=== PATIENT | female | born 1995 | race Caucasian/White ===

== ENCOUNTER 2017-04-23 14:29 | Emergency (ER) | payer BC ==
[2017-04-23] MEDS ORDERED: Sodium Chloride 0.9% 10 ML Syringe FLUSH PRN (14:56)
[2017-04-23] MEDS ORDERED: Ondansetron 4 MG/2 ML SDV IVPUSH ONE (14:56)
[2017-04-23] MEDS ORDERED: Ketorolac 30 MG/ML SDV IVPUSH ONE (14:58)
[2017-04-23] MEDS ORDERED: HYDROmorphone 1 MG/ML Syringe IVPUSH ONE (14:58)
[2017-04-23] MEDS ORDERED: Sodium Chloride 0.9% 1,000 ML IV SCH (15:00)
--- NOTE | 2017-04-23 16:06 | CT ---
CT abdomen and pelvis Technique: Multiple axial sections were obtained from above the dome of the diaphragm inferiorly through the pubic symphysis. Intravenous and oral contrast not utilized. Study has been performed as a ureteral stone protocol. Findings: Right ureter is dilated. This finding is caused by an obstructing stone within the distal right ureter located slightly proximal to the UVJ measuring about 5.9 mm in size. No other abnormal calcifications are seen along the course of the ureters. No abnormal calcifications are seen within the kidneys. Visualized lung bases shows nothing acute. Noncontrast appearance of the liver appears within normal limits. Spleen appears within normal limits. Adrenal glands show no nodule. Pancreas is within normal limits. Aorta shows no aneurysmal dilatation. No retroperitoneal adenopathy or mesenteric abnormalities are seen. No pelvic mass or adenopathy is seen. No free fluid or inflammatory change is identified. Bone window settings were reviewed which appear within normal limits for the patient's age. Impression: 1. Dilated right ureter caused by a 5.9 mm distal obstructing stone located slightly proximal to the UVJ. No other abnormal calcifications are seen. 2. No additional abnormality is identified on noncontrast CT study of the abdomen and pelvis performed as a ureteral stone protocol. Diagnostic code #3
[2017-04-23] MEDS ORDERED: HYDROmorphone 0.5 MG/0.5 ML Syringe IVPUSH ONE (16:29)
--- NOTE | 2017-04-23 16:37 | EDM.PDOC ---
ED HPI GENERAL MEDICAL PROBLEM - General Chief Complaint: Flank Pain Stated Complaint: RIGHT SIDE PAIN Time Seen by Provider: 04/23/17 14:45 Source of Information: Reports: Patient History Limitations: Reports: No Limitations - History of Present Illness INITIAL COMMENTS - FREE TEXT/NARRATIVE: The patient presents with right flank pain that radiates to her right lower abdomen. She has no nausea or vomiting. She has no dysuria or hematuria. She has a history of kidney stones. She has no diarrhea. She has on fever or chills. She has no chest pain, shortness of breath or cough. Onset: Sudden Duration: Hour(s): Location: Reports: Abdomen (right lower abdomen), Back (Right flank) Quality: Reports: Sharp Severity: Severe Improves with: Reports: None Worsens with: Reports: None Associated Symptoms: Denies: Confusion, Chest Pain, Cough, Fever/Chills, Nausea/ Vomiting, Shortness of Breath Right Flank Pain Score (Numeric/FACES): 7 - Related Data Allergies Allergy/AdvReac Type Severity Reaction Status Date / Time amoxicillin Allergy Cannot Verified 04/23/17 14:45 Remember Home Meds: Home Meds Hydrocodone/Acetaminophen [Hydrocodon-Acetaminophen 5-325] 1 - 2 each PO Q6HR PRN #20 tablet 04/23/17 [Rx] Tamsulosin HCl [Flomax] 0.4 mg PO DAILY #7 cap.er.24h 04/23/17 [Rx] Past Medical History HEENT History: Reports: Other (See Below) Other HEENT History: swollen optic nerves Genitourinary History: Reports: Renal Calculus 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) Other OB/BYN History: chlamydia Dermatologic History: Reports: Other (See Below) Other Dermatologic History: ring worm previously Social & Family History - Tobacco Use Smoking Status *Q: Current Every Day Smoker Years of Tobacco use: 6 Packs/Tins Daily: 1 Used Tobacco, but Quit: No Second Hand Smoke Exposure: No - Caffeine Use Caffeine Use: Reports: Coffee, Energy Drinks, Soda - Recreational Drug Use Recreational Drug Use: No ED ROS GENERAL - Review of Systems Review Of Systems: See Below Constitutional: Reports: No Symptoms HEENT: Reports: No Symptoms Respiratory: Reports: No Symptoms Cardiovascular: Reports: No Symptoms Endocrine: Reports: No Symptoms GI/Abdominal: Reports: Abdominal Pain (right lower abdomen). Denies: Diarrhea, Nausea, Vomiting : Reports: Flank Pain (Right) Musculoskeletal: Reports: No Symptoms Skin: Reports: No Symptoms ED EXAM, RENAL/ - Physical Exam Exam: See Below Exam Limited By: No Limitations General Appearance: Alert, No Apparent Distress Ears: Normal External Exam Nose: Normal Inspection Head: Atraumatic, Normocephalic Neck: Normal Inspection Respiratory/Chest: No Respiratory Distress, Lungs Clear, Normal Breath Sounds Cardiovascular: Regular Rate, Rhythm, No Edema, No Murmur GI/Abdominal: Soft, Non-Tender, No Organomegaly, No Mass Back Exam: Normal Inspection Course - Vital Signs Last Recorded V/S: Last Vital Signs Temp 98.1 F 04/23/17 14:41 Pulse 92 04/23/17 14:41 Resp 18 04/23/17 14:41 BP 132/79 04/23/17 14:41 Pulse Ox 98 04/23/17 14:41 - Orders/Labs/Meds Orders: Active Orders 24 hr Category Date Time Status Peripheral IV Care [RC] . DIRECTED Care 04/23/17 14:57 Active Sodium Chloride 0.9% [Normal Saline] 1,000 ml Med 04/23/17 15:00 Active IV ASDIRECTED Sodium Chloride 0.9% [Saline Flush] Med 04/23/17 14:56 Active 10 ml FLUSH ASDIRECTED PRN ED Antiemetic Medication Reflex [OM.PC] Stat Oth 04/23/17 14:56 Ordered Peripheral IV Insertion Adult [OM.PC] Stat Oth 04/23/17 14:56 Ordered Medication Orders Sodium Chloride (Normal Saline) 1,000 mls @ 125 mls/hr IV ASDIRECTED JAMES Last Admin: 04/23/17 15:25 Dose: 125 mls/hr Sodium Chloride (Saline Flush) 10 ml FLUSH ASDIRECTED PRN PRN Reason: Keep Vein Open Last Admin: 04/23/17 15:25 Dose: 10 ml Labs: Laboratory Tests 04/23/17 04/23/17 04/23/17 Range/Units 14:45 15:30 15:30 WBC 9.18 (3.98-10.04) K/mm3 RBC 4.48 (3.98-5.22) M/mm3 Hgb 13.8 (11.2-15.7) gm/L Hct 40.7 (34.1-44.9) % MCV 90.8 (79.4-94.8) fl MCH 30.8 (25.6-32.2) pg MCHC 33.9 (32.2-35.5) g/dl RDW Std Deviation 42.1 (36.4-46.3) fL Plt Count 276 (182-369) K/mm3 MPV 9.2 L (9.4-12.3) fl Neut % (Auto) 63.7 (34.0-71.1) % Lymph % (Auto) 26.7 (19.3-51.7) % [place] % (Auto) 5.8 (4.7-12.5) % Eos % (Auto) 3.3 (0.7-5.8) Baso % (Auto) 0.3 (0.1-1.2) % Neut # (Auto) 5.85 (1.56-6.13) K/mm3 Lymph # (Auto) 2.45 (1.18-3.74) K/mm3 [place] # (Auto) 0.53 H (0.24-0.36) K/mm3 Eos # (Auto) 0.30 (0.04-0.36) K/mm3 Baso # (Auto) 0.03 (0.01-0.08) K/mm3 Sodium 142 (136-145) mEq/L Potassium 3.7 (3.5-5.1) mEq/L Chloride 107 (98-107) mEq/L Carbon Dioxide 26 (21-32) mEq/L Anion Gap 12.7 (5-15) BUN 12 (7-18) mg/dL Creatinine 0.8 (0.55-1.02) mg/dL Est Cr Clr Drug Dosing 100.94 mL/min Estimated GFR (MDRD) > 60 (>60) mL/min BUN/Creatinine Ratio 15.0 (14-18) Glucose 96 (74-106) mg/dL Calcium 9.2 (8.5-10.1) mg/dL Total Bilirubin 0.2 (0.2-1.0) mg/dL AST 17 (15-37) U/L ALT 26 (14-59) U/L Alkaline Phosphatase 57 (46-116) U/L Total Protein 7.5 (6.4-8.2) g/dl Albumin 3.8 (3.4-5.0) g/dl Globulin 3.7 gm/dL Albumin/Globulin Ratio 1.0 (1-2) Lipase 99 (73-393) U/L HCG, Qual (NEGATIVE) Urine Color Yellow (Yellow) Urine Appearance Clear (Clear) Urine pH 6.5 (5.0-8.0) Ur Specific [place] 1.025 (1.005-1.030) Urine Protein 1+ H (Negative) Urine Glucose (UA) Negative (Negative) Urine Ketones Negative (Negative) Urine Occult Blood 3+ H (Negative) Urine Nitrite Negative (Negative) Urine Bilirubin Negative (Negative) Urine Urobilinogen 1.0 (0.2-1.0) Ur Leukocyte Esterase Trace H (Negative) Urine RBC 40-50 H (0-5) /hpf Urine WBC 10-20 H (0-5) /hpf Ur Epithelial Cells 0-5 (0-5) /hpf Urine Bacteria Moderate H (FEW) /hpf Urine Mucus Not seen (FEW) /hpf 04/23/17 Range/Units 15:30 WBC (3.98-10.04) K/mm3 RBC (3.98-5.22) M/mm3 Hgb (11.2-15.7) gm/L Hct (34.1-44.9) % MCV (79.4-94.8) fl MCH (25.6-32.2) pg MCHC (32.2-35.5) g/dl RDW Std Deviation (36.4-46.3) fL Plt Count (182-369) K/mm3 MPV (9.4-12.3) fl Neut % (Auto) (34.0-71.1) % Lymph % (Auto) (19.3-51.7) % [place] % (Auto) (4.7-12.5) % Eos % (Auto) (0.7-5.8) Baso % (Auto) (0.1-1.2) % Neut # (Auto) (1.56-6.13) K/mm3 Lymph # (Auto) (1.18-3.74) K/mm3 [place] # (Auto) (0.24-0.36) K/mm3 Eos # (Auto) (0.04-0.36) K/mm3 Baso # (Auto) (0.01-0.08) K/mm3 Sodium (136-145) mEq/L Potassium (3.5-5.1) mEq/L Chloride (98-107) mEq/L Carbon Dioxide (21-32) mEq/L Anion Gap (5-15) BUN (7-18) mg/dL Creatinine (0.55-1.02) mg/dL Est Cr Clr Drug Dosing mL/min Estimated GFR (MDRD) (>60) mL/min BUN/Creatinine Ratio (14-18) Glucose (74-106) mg/dL Calcium (8.5-10.1) mg/dL Total Bilirubin (0.2-1.0) mg/dL AST (15-37) U/L ALT (14-59) U/L Alkaline Phosphatase (46-116) U/L Total Protein (6.4-8.2) g/dl Albumin (3.4-5.0) g/dl Globulin gm/dL Albumin/Globulin Ratio (1-2) Lipase (73-393) U/L HCG, Qual Negative (NEGATIVE) Urine Color (Yellow) Urine Appearance (Clear) Urine pH (5.0-8.0) Ur Specific [place] (1.005-1.030) Urine Protein (Negative) Urine Glucose (UA) (Negative) Urine Ketones (Negative) Urine Occult Blood (Negative) Urine Nitrite (Negative) Urine Bilirubin (Negative) Urine Urobilinogen (0.2-1.0) Ur Leukocyte Esterase (Negative) Urine RBC (0-5) /hpf Urine WBC (0-5) /hpf Ur Epithelial Cells (0-5) /hpf Urine Bacteria (FEW) /hpf Urine Mucus (FEW) /hpf Meds: Medications Generic Name Dose Route Start Last Admin Trade Name Freq PRN Reason Stop Dose Admin Sodium Chloride 1,000 mls @ 125 mls/hr 04/23/17 15:00 04/23/17 15:25 Normal Saline IV 125 mls/hr ASDIRECTED JAMES Administration Sodium Chloride 10 ml 04/23/17 14:56 04/23/17 15:25 Saline Flush FLUSH 10 ml ASDIRECTED PRN Administration Keep Vein Open Discontinued Medications Generic Name Dose Route Start Last Admin Trade Name Freq PRN Reason Stop Dose Admin Hydromorphone HCl 1 mg 04/23/17 14:58 04/23/17 15:31 Dilaudid IVPUSH 04/23/17 14:59 1 mg ONETIME ONE Administration Hydromorphone HCl 0.5 mg 04/23/17 16:29 Dilaudid IVPUSH 04/23/17 16:30 ONETIME ONE Ketorolac Tromethamine 30 mg 04/23/17 14:58 04/23/17 15:29 Toradol IVPUSH 04/23/17 14:59 30 mg ONETIME ONE Administration Ondansetron HCl 4 mg 04/23/17 14:56 04/23/17 15:26 Zofran IVPUSH 04/23/17 14:57 4 mg ONETIME ONE Administration - Re-Assessments/Exams Free Text/Narrative Re-Assessment/Exam: 04/23/17 16:35 I ordered an IV NS at 125mL/hr, zofran 4mg IV, toradol 30mg IV, dilaudid 1mg IV , labs, UA and a CT of her abdomen and pelvis. Her CBC and CMP look good. Her HCG is negative. Her UA shows blood. Her CT shows dilated right ureter caused by a 5.9mm distal obstructing stone located slightly proximal to the UVJ. No other abnormal calcifications are seen. No additional abnormality is identified on noncontrast CT study of the abdomen and pelvis. She is having a little bit of pain come back. I ordered dilaudid 0.5mg IV. I will discharge her with some hydrocodone and flomax. Departure - Departure Time of Disposition: 16:40 Disposition: Home, Self-Care 01 Condition: Good Clinical Impression: Ureteric colic, Kidney stone - Discharge Information Prescriptions: Hydrocodone/Acetaminophen [Hydrocodon-Acetaminophen 5-325] 1 - 2 each PO Q6HR PRN #20 tablet PRN Reason: Pain Tamsulosin HCl [Flomax] 0.4 mg PO DAILY #7 cap.er.24h Referrals: PCP,None [Primary Care Provider] - Danny Narayan MD [Ordering Only Provider] - 1 Week Additional Instructions: Take flomax daily. Take hydrocodone as needed for pain. Please return if you are worse. Follow up with the urologist. - My Orders Last 24 Hours: My Active Orders 04/23/17 14:56 Sodium Chloride 0.9% [Saline Flush] 10 ml FLUSH ASDIRECTED PRN ED Antiemetic Medication Reflex [OM.PC] Stat Peripheral IV Insertion Adult [OM.PC] Stat 04/23/17 14:57 Peripheral IV Care [RC] . DIRECTED 04/23/17 15:00 Sodium Chloride 0.9% [Normal Saline] 1,000 ml IV ASDIRECTED - Assessment/Plan Last 24 Hours: My Active Orders 04/23/17 14:56 Sodium Chloride 0.9% [Saline Flush] 10 ml FLUSH ASDIRECTED PRN ED Antiemetic Medication Reflex [OM.PC] Stat Peripheral IV Insertion Adult [OM.PC] Stat 04/23/17 14:57 Peripheral IV Care [RC] . DIRECTED 04/23/17 15:00 Sodium Chloride 0.9% [Normal Saline] 1,000 ml IV ASDIRECTED
== END 2017-04-23 16:50 | disposition home or self-care (01) ==
LOC: JD.ED 14:29
DX: N20.2 Calculus of kidney with calculus of ureter (principal); F17.210 Nicotine dependence, cigarettes, uncomplicated; Z88.1 Allergy status to other antibiotic agents; Z79.899 Other long term (current) drug therapy
CPT/HCPCS: 36415; 74176; 80053; 81001; 83690; 84703; 85025; 96361; 96374; 96375; 96376; 99284; J1170; J1885; J2405; J7040; J7050

== ENCOUNTER 2017-04-24 19:10 | Emergency (ER) | payer BC ==
[2017-04-24] MEDS ORDERED: Sodium Chloride 0.9% 10 ML Syringe FLUSH PRN (20:04)
[2017-04-24] MEDS ORDERED: Ketorolac 30 MG/ML SDV IVPUSH ONE (20:04)
[2017-04-24] MEDS ORDERED: Sodium Chloride 0.9% 1,000 ML IV ONE (20:04)
[2017-04-24] MEDS ORDERED: HYDROmorphone 1 MG/ML Syringe IVPUSH ONE (20:04)
--- NOTE | 2017-04-24 20:17 | EDM.PDOC ---
ED HPI GENERAL MEDICAL PROBLEM - General Chief Complaint: Genitourinary Problem Stated Complaint: KIDNEY STONES Time Seen by Provider: 04/24/17 19:55 Source of Information: Reports: Patient, Old Records (ER visit 04-23-17) History Limitations: Reports: No Limitations - History of Present Illness INITIAL COMMENTS - FREE TEXT/NARRATIVE: 22-year-old female presents for evaluation treatment of kidney stones. Patient was seen in the ER yesterday. She was diagnosed with a 5.8 mm kidney stone. Patient was given hydrocodone. She reports that she is not having good pain relief. Reports that symptoms started yesterday morning. By the afternoon they're much worse and she presented to the ER. She was given Toradol IV and Dilaudid IV. States by the time she left the ER she was pain-free. She denies any current fevers, chills, nausea, vomiting or any dysuria. She is reporting some low back pain on the right side with radiation to the right groin. Patient was prescribed norco 5-325 for home. He states that she took 1 tablet 8: 30, one at 1600, and 1 at 1800. She states that the medication is barely taking the edge off and she continues to have significant discomfort. She was instructed to follow-up with urology and has not yet made an appointment to see them. Patient reports that she's had several kidney stones in the past. This is her fifth stone that she's had. She has never strained her urine nor had her stones analyzed. Has never seen urology. 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 Denies: Dysuria Musculoskeletal: Reports: Back Pain (right low back) ED EXAM, RENAL/ - Physical Exam Exam: See Below Exam Limited By: No Limitations General Appearance: Alert, WD/WN, No Apparent Distress Respiratory/Chest: No Respiratory Distress, Lungs Clear, Normal Breath Sounds Cardiovascular: Normal Peripheral Pulses, Regular Rate, Rhythm, No Murmur Back Exam: Paraspinal Tenderness (right lower back around L4/L5). No: CVA Tenderness (L), CVA Tenderness (R) Neurological: Alert, Oriented, Normal Cognition Psychiatric: Normal Affect, Normal Mood Skin Exam: Warm, Dry, Normal Color Course - Vital Signs Last Recorded V/S: Last Vital Signs Temp 36.7 C 04/24/17 19:20 Pulse 85 04/24/17 19:20 Resp 17 04/24/17 19:20 BP 125/90 04/24/17 19:20 Pulse Ox 98 04/24/17 19:20 - Orders/Labs/Meds Orders: Active Orders 24 hr Category Date Time Status Peripheral IV Care [RC] . DIRECTED Care 04/24/17 20:04 Active CULTURE URINE [RM] Stat Lab 04/24/17 20:50 Ordered Peripheral IV Insertion Adult [OM.PC] Routine Oth 04/24/17 20:04 Ordered Labs: Laboratory Tests 04/24/17 04/24/17 04/24/17 Range/Units 20:10 20:34 20:34 WBC 7.76 (3.98-10.04) K/mm3 RBC 3.96 L (3.98-5.22) M/mm3 Hgb 12.3 (11.2-15.7) gm/L Hct 36.1 (34.1-44.9) % MCV 91.2 (79.4-94.8) fl MCH 31.1 (25.6-32.2) pg MCHC 34.1 (32.2-35.5) g/dl RDW Std Deviation 41.6 (36.4-46.3) fL Plt Count 266 (182-369) K/mm3 MPV 8.8 L (9.4-12.3) fl Neut % (Auto) 49.1 (34.0-71.1) % Lymph % (Auto) 41.5 (19.3-51.7) % [place] % (Auto) 5.8 (4.7-12.5) % Eos % (Auto) 3.4 (0.7-5.8) Baso % (Auto) 0.1 (0.1-1.2) % Neut # (Auto) 3.81 (1.56-6.13) K/mm3 Lymph # (Auto) 3.22 (1.18-3.74) K/mm3 [place] # (Auto) 0.45 H (0.24-0.36) K/mm3 Eos # (Auto) 0.26 (0.04-0.36) K/mm3 Baso # (Auto) 0.01 (0.01-0.08) K/mm3 Sodium 140 (136-145) mEq/L Potassium 4.1 (3.5-5.1) mEq/L Chloride 105 (98-107) mEq/L Carbon Dioxide 27 (21-32) mEq/L Anion Gap 12.1 (5-15) BUN 12 (7-18) mg/dL Creatinine 0.8 (0.55-1.02) mg/dL Est Cr Clr Drug Dosing 100.94 mL/min Estimated GFR (MDRD) > 60 (>60) mL/min BUN/Creatinine Ratio 15.0 (14-18) Glucose 96 (74-106) mg/dL Calcium 8.9 (8.5-10.1) mg/dL Total Bilirubin 0.2 (0.2-1.0) mg/dL AST 24 (15-37) U/L ALT 24 (14-59) U/L Alkaline Phosphatase 50 (46-116) U/L Total Protein 6.7 (6.4-8.2) g/dl Albumin 3.5 (3.4-5.0) g/dl Globulin 3.2 gm/dL Albumin/Globulin Ratio 1.1 (1-2) Urine Color Yellow (Yellow) Urine Appearance Clear (Clear) Urine pH 6.5 (5.0-8.0) Ur Specific [place] > or = 1.030 (1.005-1.030) Urine Protein 1+ H (Negative) Urine Glucose (UA) Negative (Negative) Urine Ketones Negative (Negative) Urine Occult Blood 3+ H (Negative) Urine Nitrite Negative (Negative) Urine Bilirubin Negative (Negative) Urine Urobilinogen 1.0 (0.2-1.0) Ur Leukocyte Esterase 1+ H (Negative) Urine RBC 40-50 H (0-5) /hpf Urine WBC 10-20 H (0-5) /hpf Ur Epithelial Cells 5-10 H (0-5) /hpf Urine Bacteria Moderate H (FEW) /hpf Urine Mucus Moderate H (FEW) /hpf Urine Trichomonas Few Meds: Medications Discontinued Medications Generic Name Dose Route Start Last Admin Trade Name Freq PRN Reason Stop Dose Admin Hydromorphone HCl 1 mg 04/24/17 20:04 04/24/17 20:13 Dilaudid IVPUSH 04/24/17 20:05 1 mg ONETIME ONE Administration Sodium Chloride 1,000 mls @ 999 mls/hr 04/24/17 20:04 04/24/17 20:13 Normal Saline IV 04/24/17 21:04 999 mls/hr ONETIME ONE Administration Ketorolac Tromethamine 30 mg 04/24/17 20:04 04/24/17 20:13 Toradol IVPUSH 04/24/17 20:05 30 mg ONETIME ONE Administration Sodium Chloride 10 ml 04/24/17 20:04 04/24/17 20:13 Saline Flush FLUSH 10 ml ASDIRECTED PRN Administration Keep Vein Open - Re-Assessments/Exams Free Text/Narrative Re-Assessment/Exam: 04/24/17 21:19 Patient is currently resting comfortable. Reports good pain control to oral and Dilaudid. Her mother is comingto get her from the ER [facility]. Will add in oral Toradol and recommend that she take 2 tabs of the norco every 4 -6 hours. She should follow up with urology. I will give her a strainer to strain her urine. Will treat for Trichomonas that was seen on UA. Urine was sent for culture. Recommended a complete STD screen. Encourage her to go to [facility] where this option is much more affordable. I did offer her the screening here in the ER [place] but she agrees to go to [facility]. Discharge instructions as documented. Departure - Departure Time of Disposition: 21:21 Disposition: Home, Self-Care 01 Condition: Fair Clinical Impression: Kidney stone, Ureteric colic, Trichomonal infection - Discharge Information Prescriptions: metroNIDAZOLE [Flagyl] 500 mg PO Q12H #14 tab Instructions: Kidney Stones, Trichomoniasis Referrals: PCP,None [Primary Care Provider] - Forms: ED Department Discharge, ED Return to Work/School Form Additional Instructions: Take the Flagyl twice a day for 7 days. No intercourse for 7 days. Do not take any alcohol with the Flagyl as this will make you very sick. Recommend follow-up with [facility] for complete STD testing. Recommend [facility] call [phone]. They are located at [address] [place] [address]. Prescription for Toradol 10 mg tabs 1 tab every 6 hours as needed for pain #15. Do not take more than 40 mg 4 tabs Toradol in 1 day. Continue on your hydrocodone 1 or 2 tabs every 4-6 hours as needed for pain. Do not drive or operate machinery within 12 hours of taking the hydrocodone. Hydrocodone can be habit-forming, I recommend you take as few of these as needed to control your pain. Strain urine. If you catch a stone recommend bringing this to urology clinic. Follow-up with Dr. Narayan. Call his office to schedule appointment with him tomorrow. call [phone] to schedule with him. Make sure you are drinking plenty of fluids. You were given medication in the ER that can affect your ability to drive and operate machinery. Do not drive or operate machinery within 12 hours of taking prescription narcotic pain medication. Please return to ER if your symptoms change or worsen. note for work given . - My Orders Last 24 Hours: My Active Orders 04/24/17 20:04 Peripheral IV Care [RC] . DIRECTED Peripheral IV Insertion Adult [OM.PC] Routine 04/24/17 20:50 CULTURE URINE [RM] Stat - Assessment/Plan Last 24 Hours: My Active Orders 04/24/17 20:04 Peripheral IV Care [RC] . DIRECTED Peripheral IV Insertion Adult [OM.PC] Routine 04/24/17 20:50 CULTURE URINE [RM] Stat
== END 2017-04-24 21:50 | disposition home or self-care (01) ==
LOC: JD.ED 19:10
DX: N20.2 Calculus of kidney with calculus of ureter (principal); A59.9 Trichomoniasis, unspecified; F17.210 Nicotine dependence, cigarettes, uncomplicated; Z79.899 Other long term (current) drug therapy; Z88.1 Allergy status to other antibiotic agents
CPT/HCPCS: 36415; 80053; 81001; 85025; 87086; 96361; 96374; 96375; 99284; J1170; J1885; J7040; J7050; 87088

== ENCOUNTER 2017-04-25 02:39 | Emergency (ER) | payer BC ==
[2017-04-25] MEDS ORDERED: HYDROmorphone 1 MG/ML Syringe IVPUSH ONE (03:00)
[2017-04-25] MEDS ORDERED: Ondansetron 4 MG/2 ML SDV IVPUSH ONE (03:00)
[2017-04-25] MEDS ORDERED: Sodium Chloride 0.9% 10 ML Syringe FLUSH PRN (03:01)
[2017-04-25] MEDS ORDERED: cefTRIAXone 1 GM in Sodium Chloride 0.9% 100 ML IV ONE (03:03)
--- NOTE | 2017-04-25 03:32 | EDM.PDOC ---
ED HPI GENERAL MEDICAL PROBLEM - General Chief Complaint: Flank Pain Stated Complaint: KIDNEY STONE PAIN Time Seen by Provider: 04/25/17 02:48 Source of Information: Reports: Patient, RN Notes Reviewed - History of Present Illness INITIAL COMMENTS - FREE TEXT/NARRATIVE: 22-year-old female returns was quite severe right back and flank discomfort, nausea and vomiting. She had onset of pain about 2 days ago was seen here in the ED and diagnosed with a 5.8 mm right-sided kidney stone already approaching the bladder with hydronephrosis. She did return around 8:00 this last evening about 7 hours ago with worsening right back and flank discomfort. The hydrocodone previously prescribed was not giving her much pain relief. She was treated with IV Dilaudid and IV Toradol and did get good pain relief. See those records for more details of those visits. However about an hour or 2 ago the pain did start coming back and once again is getting quite severe. He also has had nausea vomiting and continues to feel very nauseated at this time. Of note urinalysis obtained last evening did show a few trichomonas in the urine so she was prescribed Flagyl. The UA also did show moderate bacteria and 10-20 WBCs. Urine culture was ordered. Right Flank Pain Score (Numeric/FACES): 8 - Related Data Allergies Allergy/AdvReac Type Severity Reaction Status Date / Time amoxicillin Allergy Cannot Verified 04/25/17 02:44 Remember Home Meds: Home Meds Hydrocodone/Acetaminophen [Hydrocodon-Acetaminophen 5-325] 1 - 2 each PO Q6HR PRN #20 tablet 04/23/17 [Rx] Tamsulosin HCl [Flomax] 0.4 mg PO DAILY #7 cap.er.24h 04/23/17 [Rx] metroNIDAZOLE [Flagyl] 500 mg PO Q12H #14 tab 04/24/17 [Rx] Ondansetron [Zofran ODT] 4 mg PO Q6H PRN #10 tab.dis 04/25/17 [Rx] Past Medical History HEENT History: Reports: Other (See Below) Other HEENT History: swollen optic nerves Genitourinary History: Reports: Renal Calculus 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 CHEF History: Reports: Other (See Below) Other OB/BYN History: chlamydia Dermatologic History: Reports: Other (See Below) Other Dermatologic History: ring worm previously Social & Family History - Tobacco Use Smoking Status *Q: Current Every Day Smoker Years of Tobacco use: 3 Packs/Tins Daily: 1 Used Tobacco, but Quit: No Second Hand Smoke Exposure: No - Caffeine Use Caffeine Use: Reports: Coffee, Energy Drinks, Soda - Recreational Drug Use Recreational Drug Use: No ED ROS GENERAL - Review of Systems Review Of Systems: See Below Constitutional: Denies: Fever, Chills HEENT: Denies: Throat Pain Respiratory: Denies: Shortness of Breath Cardiovascular: Denies: Chest Pain GI/Abdominal: Reports: Abdominal Pain, Nausea (Primarily right flank radiating to right back), Vomiting : Denies: Dysuria, Frequency Musculoskeletal: Reports: Back Pain (Severe right back and flank discomfort) Skin: Reports: No Symptoms Neurological: Reports: No Symptoms ED EXAM, RENAL/ - Physical Exam Exam: See Below General Appearance: Alert, Moderate Distress Throat/Mouth: Normal Inspection, Normal Oropharynx Head: No: Facial Swelling Neck: Supple, Full Range of Motion Respiratory/Chest: No Respiratory Distress, Lungs Clear, Normal Breath Sounds Cardiovascular: Tachycardia GI/Abdominal: Tender (Right flank right lower abdomen). No: Guarding Back Exam: CVA Tenderness (R), Other Extremities: Normal Inspection, Normal Range of Motion Neurological: Alert, Oriented, No Motor/Sensory Deficits Skin Exam: Warm, Dry, Normal Color Course - Vital Signs Last Recorded V/S: Last Vital Signs Temp 97.7 F 04/25/17 02:44 Pulse 105 H 04/25/17 02:44 Resp 20 04/25/17 02:44 BP 153/92 H 04/25/17 02:44 Pulse Ox 98 04/25/17 02:44 - Orders/Labs/Meds Orders: Active Orders 24 hr Category Date Time Status Peripheral IV Care [RC] . DIRECTED Care 04/25/17 03:02 Active Peripheral IV Insertion Adult [OM.PC] Stat Oth 04/25/17 03:00 Ordered Meds: Medications Discontinued Medications Generic Name Dose Route Start Last Admin Trade Name Freq PRN Reason Stop Dose Admin Hydromorphone HCl 1 mg 04/25/17 03:00 04/25/17 03:12 Dilaudid IVPUSH 04/25/17 03:01 1 mg ONETIME ONE Administration Hydromorphone HCl 0.5 mg 04/25/17 03:44 04/25/17 03:50 Dilaudid IVPUSH 04/25/17 03:45 0.5 mg ONETIME ONE Administration Ceftriaxone Sodium 1 gm/ 100 mls @ 200 mls/hr 04/25/17 03:03 04/25/17 03:12 Sodium Chloride IV 04/25/17 03:32 200 mls/hr ONETIME ONE Administration Sodium Chloride 500 mls @ 999 mls/hr 04/25/17 03:44 04/25/17 03:48 Normal Saline IV 04/25/17 04:14 999 mls/hr .BOLUS ONE Administration Metoclopramide HCl 5 mg 04/25/17 04:24 04/25/17 04:31 Reglan IVPUSH 04/25/17 04:25 5 mg ONETIME ONE Administration Ondansetron HCl 4 mg 04/25/17 03:00 04/25/17 03:12 Zofran IVPUSH 04/25/17 03:01 4 mg ONETIME ONE Administration Sodium Chloride 10 ml 04/25/17 03:01 04/25/17 03:15 Saline Flush FLUSH 10 ml ASDIRECTED PRN Administration Keep Vein Open Departure - Departure Time of Disposition: 16:10 Disposition: Home, Self-Care 01 Condition: Fair Clinical Impression: Kidney stone, Ureteric colic - Discharge Information Prescriptions: Ondansetron [Zofran ODT] 4 mg PO Q6H PRN #10 tab.dis PRN Reason: Nausea/Vomiting Instructions: Renal Colic, [id number], Kidney Stones, [id number] Referrals: PCP,None [Primary Care Provider] - Forms: ED Department Discharge Additional Instructions: Clear liquids and very bland diet as tolerated, Zofran every 6-8 hours if needed for any further nausea or vomiting, pain medication as previously prescribed as needed. Try take those meds with food so as to not further upset her stomach. Call Dr. Narayan's office this morning after 7 AM our time for emergency appt regarding your 5.8 mm stone R distal ureter with consideration of the ongoing difficulty you are having with recurrent pain, nausea and vomiting. Continue to strain urine to watch for stone. If unable to See Urologist today or tomorrow see your regular provider tomorrow for recheck to see how you are doing and also to follow up on urine culture ordered last evening. Return to ED as needed. - My Orders Last 24 Hours: My Active Orders 04/25/17 03:00 Peripheral IV Insertion Adult [OM.PC] Stat 04/25/17 03:02 Peripheral IV Care [RC] . DIRECTED - Assessment/Plan Last 24 Hours: My Active Orders 04/25/17 03:00 Peripheral IV Insertion Adult [OM.PC] Stat 04/25/17 03:02 Peripheral IV Care [RC] . DIRECTED
[2017-04-25] MEDS ORDERED: Sodium Chloride 0.9% 500 ML IV ONE (03:44)
[2017-04-25] MEDS ORDERED: HYDROmorphone 0.5 MG/0.5 ML Syringe IVPUSH ONE (03:44)
[2017-04-25] MEDS ORDERED: Metoclopramide 10 MG/2 ML SDV IVPUSH ONE (04:24)
== END 2017-04-25 05:10 | disposition home or self-care (01) ==
LOC: JD.ED 02:39
DX: N13.2 Hydronephrosis with renal and ureteral calculous obstruction (principal); Z88.1 Allergy status to other antibiotic agents; F17.210 Nicotine dependence, cigarettes, uncomplicated
CPT/HCPCS: 96361; 96365; 96375; 96376; 99284; J0696; J1170; J2405; J2765; J7030; J7040; J7050

== ENCOUNTER 2017-09-06 00:46 | Emergency (ER) | payer BC ==
[2017-09-06] MEDS ORDERED: Ondansetron 4 MG/2 ML SDV IVPUSH ONE ×2 (01:55→04:42)
[2017-09-06] MEDS ORDERED: HYDROmorphone 0.5 MG/0.5 ML SYRINGE IVPUSH STA (02:15)
--- NOTE | 2017-09-06 02:20 | EDM.PDOC ---
ED HPI GENERAL MEDICAL PROBLEM - General Chief Complaint: Genitourinary Problem Stated Complaint: POSSIBLE KIDNEY STONE Time Seen by Provider: 09/06/17 01:52 Source of Information: Reports: Patient History Limitations: Reports: No Limitations - History of Present Illness INITIAL COMMENTS - FREE TEXT/NARRATIVE: The patient states that she developed sudden-onset right flank pain this past 09/04/2017. It is sharp and achy in character. It is made worse with quick movements or inspiration. Is made better if she remains still. She had nausea and emesis in our ER, but none previously. No recent fever. No recent urinary symptoms. The patient states that she has had similar pain on several prior occasions, always associated with a ureterolith. The patient states that she started her menstrual period this past Sunday, 09/01. It is an otherwise normal period. The patient does not have a PCP. Right Flank Pain Score (Numeric/FACES): 8 - Related Data Allergies Allergy/AdvReac Type Severity Reaction Status Date / Time amoxicillin Allergy Cannot Verified 09/06/17 01:04 Remember Home Meds: Home Meds Tamsulosin HCl [Flomax] 0.4 mg PO DAILY #7 cap.er.24h 04/23/17 [Rx] Ondansetron [Zofran ODT] 4 mg PO Q6H PRN #10 tab.dis 04/25/17 [Rx] Acetaminophen/HYDROcodone [Wasco 325-5 MG] 1 - 2 tab PO Q6H PRN #20 tablet 09/06 [Rx] Ondansetron [Zofran ODT] 1 tab PO Q8H PRN #10 tab.dis 09/06/17 [Rx] Tamsulosin HCl [Flomax] 1 cap PO QAM PRN #5 cap.er.24h 09/06/17 [Rx] Past Medical History HEENT History: Reports: Other (See Below) Other HEENT History: swollen optic nerves Genitourinary History: Reports: Renal Calculus - Infectious Disease History Infectious Disease History: Reports: Other (See Below) (Chlamydia) - Past Surgical History Female Surgical History: Reports: Ureteral Stent (right) Social & Family History - Family History Family Medical History: Noncontributory - Tobacco Use Smoking Status *Q: Current Every Day Smoker Years of Tobacco use: 7 Packs/Tins Daily: 1 - Caffeine Use Caffeine Use: Reports: Coffee, Energy Drinks, Soda - Alcohol Use Alcohol Use History: Yes Alcohol Use Frequency: Rarely - Recreational Drug Use Recreational Drug Use: No - Living Situation & Occupation Living situation: Reports: Single, with Significant Other (Boyfriend) Occupation: Employed ([employer]) ED ROS GENERAL - Review of Systems Review Of Systems: ROS reveals no pertinent complaints other than HPI. ED EXAM, GENERAL - Physical Exam Exam: See Below Exam Limited By: No Limitations General Appearance: Alert, WD/WN, Mild Distress Eye Exam: Bilateral Eye: Normal Inspection Ears: Normal External Exam, Hearing Grossly Normal Nose: Normal Inspection, No Blood Throat/Mouth: Normal Inspection, Normal Lips, Normal Voice, No Airway Compromise Head: Atraumatic, Normocephalic Neck: Normal Inspection, Full Range of Motion Respiratory/Chest: No Respiratory Distress, Lungs Clear, Normal Breath Sounds, No Accessory Muscle Use Cardiovascular: Normal Peripheral Pulses, Regular Rate, Rhythm, No Edema, No Gallop, No JVD, No Murmur, No Rub Peripheral Pulses: 4+: Radial (L), Radial (R) GI/Abdominal: Normal Bowel Sounds, Soft, Non-Tender, No Organomegaly, No Distention, No Abnormal Bruit, No Mass (Female) Exam: Deferred Rectal (Female) Exam: Deferred Back Exam: Normal Inspection, Full Range of Motion, CVA Tenderness (L), CVA Tenderness (R) Extremities: Normal Inspection, Normal Range of Motion, No Pedal Edema, Normal Capillary Refill Neurological: Alert, Oriented, Normal Cognition, No Motor/Sensory Deficits Psychiatric: Normal Affect Skin Exam: Warm, Dry, Intact, Normal Color, No Rash Course - Vital Signs Last Recorded V/S: Last Vital Signs Temp 36.8 C 09/06/17 01:00 Pulse 88 09/06/17 01:00 Resp 18 09/06/17 01:00 BP 142/99 H 09/06/17 01:00 Pulse Ox 100 09/06/17 01:00 - Orders/Labs/Meds Orders: Active Orders 24 hr Category Date Time Status Abdomen Pelvis wo Cont [CT] Stat Exams 09/06/17 05:23 Taken Kidney Ultrasound [Retroperitoneal Comp] [US] Stat Exams 09/06/17 02:14 Taken HCG QUALITATIVE,URINE [URCHEM] Stat Lab 09/06/17 01:10 Ordered UA W/MICROSCOPIC [URIN] Stat Lab 09/06/17 00:59 Ordered Labs: Laboratory Tests 09/06/17 09/06/17 Range/Units 00:59 01:10 Urine Color Light yellow (Yellow) Urine Appearance Cloudy H (Clear) Urine pH 7.5 (5.0-8.0) Ur Specific Mobile 1.020 (1.005-1.030) Urine Protein Trace H (Negative) Urine Glucose (UA) Negative (Negative) Urine Ketones Negative (Negative) Urine Occult Blood 1+ H (Negative) Urine Nitrite Negative (Negative) Urine Bilirubin Negative (Negative) Urine Urobilinogen 0.2 (0.2-1.0) Ur Leukocyte Esterase Trace H (Negative) Urine RBC 0-5 (0-5) /hpf Urine WBC 0-5 (0-5) /hpf Ur Epithelial Cells 0-5 (0-5) /hpf Amorphous Sediment Many H (NOT SEEN) /hpf Urine Bacteria Not seen (FEW) /hpf Urine Mucus Not seen (FEW) /hpf Urine HCG, Qual Negative (NEGATIVE) Meds: Medications Discontinued Medications Generic Name Dose Route Start Last Admin Trade Name Freq PRN Reason Stop Dose Admin Hydromorphone HCl 1 mg 09/06/17 02:15 09/06/17 02:26 Dilaudid IVPUSH 09/06/17 02:16 1 mg ONETIME STA Administration Hydromorphone HCl 0.5 mg 09/06/17 04:34 09/06/17 04:47 Dilaudid IVPUSH 09/06/17 04:35 0.5 mg ONETIME ONE Administration Ketorolac Tromethamine 30 mg 09/06/17 05:33 09/06/17 05:57 Toradol IVPUSH 09/06/17 05:34 30 mg ONETIME STA Administration Ondansetron HCl 4 mg 09/06/17 01:55 09/06/17 02:01 Zofran IVPUSH 09/06/17 01:56 4 mg ONETIME ONE Administration Ondansetron HCl 4 mg 09/06/17 04:42 09/06/17 04:47 Zofran IVPUSH 09/06/17 04:43 4 mg ONETIME ONE Administration Tamsulosin HCl 0.4 mg 09/06/17 05:33 09/06/17 05:57 Flomax PO 09/06/17 05:34 0.4 mg ONETIME ONE Administration - Re-Assessments/Exams Free Text/Narrative Re-Assessment/Exam: 09/06/17 02:16 The patient is complaining of severe right flank pain, just like prior kidney stones, however, the patient's urinalysis is negative for microscopic blood, this, despite the fact that the urinalysis was collected by clean catch, and the patient is on her menstrual period. Review of prior medical records finds that the patient had 40-50 RBCs on prior urinalyses when she was found to have a ureterolith. Additionally, she states that her pain is worse with certain movements, better if she remains still, which is not consistent with a ureterolith, and on physical examination, she has severe tenderness to palpation across her entire back, left and right, upper and lower. I recommended that, in order to avoid unnecessary radiation from a CT scan, we obtain a renal ultrasound. If there is no hydroureter or hydronephrosis, then the likelihood of a ureterolith is nearly zero, and I would recommend treatment for muscle spasm. If, on the other hand, hydroureter and hydronephrosis is found , then we can proceed with a CT scan to evaluate for a stone. The patient then asked if we can just skip directly to the CT scan. I had to reiterate that the goal here is to reduce unnecessary radiation. In the meantime , I have ordered IV Dilaudid. 09/06/17 05:19 Renal ultrasound is read by [facility] as "Right hydronephrosis." I have ordered a CT of the abdomen and pelvis without contrast to evaluate for a ureterolith. 09/06/17 06:15 CT of the abdomen and pelvis without contrast is read by [facility] as "Right UVJ calculus with moderate hydronephrosis and hydroureter." The body of the report indicates that the stone is 4 x 9 mm. 09/06/17 06:23 Test results discussed with the patient. With the stone measuring 4 x 9 mm at the UV junction, it will likely pass on its own, but in case it doesn't, I would like the patient to follow-up with her Urologist. She states that she has a Urologist in [place], but does not recall their name. She states that she can find who it is, if needed. I will discharge her home with a urine strainer and prescriptions for Wasco, Zofran, and Flomax. Departure - Departure Time of Disposition: 06:24 Disposition: Home, Self-Care 01 Condition: Fair Clinical Impression: Ureterolithiasis - Discharge Information Prescriptions: Acetaminophen/HYDROcodone [Wasco 325-5 MG] 1 - 2 tab PO Q6H PRN #20 tablet PRN Reason: Pain (Severe 7-10) Ondansetron [Zofran ODT] 1 tab PO Q8H PRN #10 tab.dis PRN Reason: Nausea/Vomiting Tamsulosin HCl [Flomax] 1 cap PO QAM PRN #5 cap.er.24h PRN Reason: Pain Referrals: PCP,None [Primary Care Provider] - Forms: ED Department Discharge, ED Return to Work/School Form Additional Instructions: You were seen in the emergency room for right flank pain. Workup in the ER included a urinalysis, a urine test, a renal ultrasound, and a CT scan of your abdomen and pelvis. While there was no blood in your urine to suggest a kidney stone, the renal ultrasound indicated edema of your right kidney, and a CT scan confirmed a 4 x 9 mm stone at the very end of your right ureter, right next your bladder. Given the size and location of the stone, you will most likely pass the stone on your own, however, if you continue to have pain by 09/10/2017, please follow-up with your Urologist. Stay adequately hydrated. Strain all of your urine. If you capture the stone, take it to your doctor for analysis. Take [id number] ibuprofen, 2-3 tablets (400-600 mg) every 8 hours, with food, as needed for pain. Take 1 to 2 tablets of the narcotic pain reliever Wasco up to every 6 hours, as needed for pain not relieved by ibuprofen. If you take Wasco, do not drive or operate heavy equipment for 10 hours afterwards. Wasco will likely cause constipation, so consider taking a stool softener. Dissolve one tablet of the anti-nausea medicine Zofran on your tongue up to every 8 hours, as needed for nausea/vomiting. Take one tablet of the anti-spasm medicine Flomax every morning, starting tomorrow morning, 09/07/2017, as needed for pain. A note for work, excusing you through 09/10/2017, has been provided. If any other problems, please do not hesitate to return to the ER. - My Orders Last 24 Hours: My Active Orders 09/06/17 00:59 UA W/MICROSCOPIC [URIN] Stat 09/06/17 01:10 HCG QUALITATIVE,URINE [URCHEM] Stat 09/06/17 02:14 Kidney Ultrasound [Retroperitoneal Comp] [US] Stat 09/06/17 05:23 Abdomen Pelvis wo Cont [CT] Stat - Assessment/Plan Last 24 Hours: My Active Orders 09/06/17 00:59 UA W/MICROSCOPIC [URIN] Stat 09/06/17 01:10 HCG QUALITATIVE,URINE [URCHEM] Stat 09/06/17 02:14 Kidney Ultrasound [Retroperitoneal Comp] [US] Stat 09/06/17 05:23 Abdomen Pelvis wo Cont [CT] Stat
[2017-09-06] MEDS ORDERED: HYDROmorphone 0.5 MG/0.5 ML SYRINGE IVPUSH ONE (04:34)
[2017-09-06] MEDS ORDERED: Ketorolac 30 MG/ML SDV IVPUSH STA (05:33)
[2017-09-06] MEDS ORDERED: Tamsulosin 0.4 MG Cap.ER PO ONE (05:33)
--- NOTE | 2017-09-06 07:42 | CT ---
CT abdomen and pelvis Technique: Multiple axial sections were obtained from above the dome of the diaphragm inferiorly through the pubic symphysis. Intravenous and oral contrast not utilized. Study has been performed as a ureteral stone protocol. Right-sided hydroureter and hydronephrosis is seen which is due to an obstructing distal right ureteral stone measuring about 7.8 mm in size. This is located at the UVJ. No other abnormal calcifications are seen along the course of the ureters. Minimal nonobstructing stone is noted within the upper right kidney measuring slightly greater than 1 mm. No other abnormal calcifications are seen within the kidneys. Visualized lung bases show nothing acute. Noncontrast appearance of the liver and spleen appear within normal limits. Small hiatal hernia is noted. Adrenal glands show no nodule. Pancreas shows no discrete abnormality. Gallbladder contains no calcified gallstones. Aorta shows no aneurysmal dilatation. No retroperitoneal adenopathy or mesenteric abnormalities are seen. No pelvic mass or adenopathy is seen. Appendix is not definitely visualized. Bone window settings appear within normal limits for the patient's age. Small fat-containing umbilical hernia is incidentally noted. Impression: 1. Obstructing distal right ureteral stone at the UVJ measuring approximately 7.8 mm. 2. Small nonobstructing calculus within the upper right kidney measuring slightly greater than 1 mm. 3. Other incidental findings. Diagnostic code #3 Agree with preliminary report issued by [facility] ([facility] preliminary report dictated on 09/06/17, 7:13 AM Central Time)
--- NOTE | 2017-09-06 08:31 | US ---
Renal ultrasound: Multiple real-time images of the kidneys were obtained. Right kidney shows hydronephrosis and dilatation of the proximal right ureter. No right ureteral jets seen within the bladder. Left kidney shows no hydronephrosis. No mass seen within either kidney. Resistivity indices are normal within both kidneys. Bladder empties completely on post void exam. Impression: 1. Findings compatible with obstructing right ureteral lesion as described above. Diagnostic code #3 Agree with preliminary report issued by [facility] ([facility] preliminary report dictated on 09/06/17, 6:17 AM Central Time)
== END 2017-09-06 06:44 | disposition home or self-care (01) ==
LOC: JD.ED 00:46
DX: N20.2 Calculus of kidney with calculus of ureter (principal); F17.210 Nicotine dependence, cigarettes, uncomplicated; Z88.1 Allergy status to other antibiotic agents; Z79.899 Other long term (current) drug therapy
CPT/HCPCS: 74176; 76770; 81001; 81025; 96374; 96375; 96376; 99284; A9270; J1170; J1885; J2405

== ENCOUNTER 2018-07-02 19:28 | Emergency (ER) | payer BC ==
--- NOTE | 2018-07-02 20:10 | EDM.PDOC ---
ED HPI GENERAL MEDICAL PROBLEM - General Chief Complaint: Headache Stated Complaint: headache Time Seen by Provider: 07/02/18 20:10 - History of Present Illness INITIAL COMMENTS - FREE TEXT/NARRATIVE: 23-year-old female presents emergency room with a headache. This is been going on progressively getting worse for about a week he had it starts at the base of her neck and shoots up over top of her head. She does not have normal at this. She does not have prior history of headaches. She denies any fevers or chills no vision changes other than some mild photophobia but she says she is getting used to this she has some mild nausea no vomiting Headache Pain Score (Numeric/FACES): 6 - Related Data Allergies Allergy/AdvReac Type Severity Reaction Status Date / Time amoxicillin Allergy Cannot Verified 09/06/17 01:04 Remember Home Meds: Home Meds . 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: Other (See Below) Other MUSICAL INSTRUMENT MAKER OR REPAIRER History: chlamydia Dermatologic History: Reports: Other (See Below) Other Dermatologic History: ring worm previously - Infectious Disease History Infectious Disease History: Reports: Other (See Below) - Past Surgical History Female Surgical History: Reports: Ureteral Stent Social & Family History - Family History Family Medical History: Noncontributory - Tobacco Use Smoking Status *Q: Current Every Day Smoker Years of Tobacco use: 6 Packs/Tins Daily: 0.5 - Caffeine Use Caffeine Use: Reports: Coffee, Energy Drinks - Recreational Drug Use Recreational Drug Use: No - Living Situation & Occupation Living situation: Reports: Single, with Significant Other (Boyfriend) Occupation: Employed ([employer]) ED ROS GENERAL - Review of Systems Review Of Systems: See Below Constitutional: Reports: No Symptoms HEENT: Reports: No Symptoms Respiratory: Reports: No Symptoms Cardiovascular: Reports: No Symptoms GI/Abdominal: Reports: Nausea. Denies: Abdominal Pain, Constipation, Diarrhea, Vomiting : Reports: No Symptoms Neurological: Reports: Headache Psychiatric: Reports: No Symptoms - Physical Exam Exam: See Below Exam Limited By: No Limitations General Appearance: Alert, No Apparent Distress Ears: Normal External Exam, Normal Canal, Hearing Grossly Normal, Normal TMs Nose: Normal Inspection, Normal Mucosa, No Blood Throat/Mouth: Normal Inspection, Normal Lips, Normal Teeth, Normal Gums, Normal Oropharynx, Normal Voice, No Airway Compromise Head Exam: Atraumatic, Normocephalic Neck: Normal Inspection, Supple, Non-Tender, Full Range of Motion, Other ( Palpation at the base the skull with paraspinous muscles insert is very tender and seems to elicit her discomfort.) Respiratory/Chest: No Respiratory Distress, Lungs Clear, Normal Breath Sounds, No Accessory Muscle Use Cardiovascular: Normal Peripheral Pulses, Regular Rate, Rhythm, No Edema GI/Abdominal: Normal Bowel Sounds, Soft, Non-Tender Neuro Exam (Abbreviated): Other (Cranial nerves II through XII grossly intact all muscle groups the upper and lower extremities are equal and appropriate bilaterally. Deep tendon reflexes are appropriate at brachial radialis and patella tendons bilaterally cerebellar testing entirely within normal limits. Cranial nerves II through XII grossly intact) Back Exam: Normal Inspection. No: CVA Tenderness (L), CVA Tenderness (R) Course - Vital Signs Last Recorded V/S: Last Vital Signs Temp 37.0 C 07/02/18 19:38 Pulse 114 H 07/02/18 19:38 Resp 18 07/02/18 19:38 BP 141/90 H 07/02/18 19:38 Pulse Ox 100 07/02/18 19:38 - Orders/Labs/Meds Meds: Medications Discontinued Medications Generic Name Dose Route Start Last Admin Trade Name Freq PRN Reason Stop Dose Admin Diphenhydramine HCl 50 mg 07/02/18 20:22 07/02/18 20:37 Benadryl IVPUSH 07/02/18 20:23 50 mg ONETIME ONE Administration Lactated Ringer's 1,000 mls @ 999 mls/hr 07/02/18 20:22 07/02/18 20:36 Ringers, Lactated IV 07/02/18 21:22 999 mls/hr .BOLUS ONE Administration Ketorolac Tromethamine 30 mg 07/02/18 21:49 07/02/18 21:55 Toradol IVPUSH 07/02/18 21:50 30 mg ONETIME ONE Administration Ondansetron HCl 4 mg 07/02/18 20:22 07/02/18 20:37 Zofran IVPUSH 07/02/18 20:23 4 mg ONETIME ONE Administration - Re-Assessments/Exams Free Text/Narrative Re-Assessment/Exam: 07/02/18 22:34 A she was given IV Zofran and Benadryl and a liter of LR with minimal improvement this was followed up with Toradol and she had significant improvement. Patient will be discharged home to rest Departure - Departure Time of Disposition: 22:34 Disposition: Home, Self-Care 01 Clinical Impression: Tension headache - Discharge Information Referrals: PCP,None [Primary Care Provider] - Forms: ED Department Discharge Additional Instructions: Return to the emergency room with any questions problems worsening symptoms. Go home and get some rest. Follow-up with your regular healthcare provider next week.
[2018-07-02] MEDS ORDERED: diphenhydrAMINE 50 MG/ML SDV IVPUSH ONE (20:22)
[2018-07-02] MEDS ORDERED: Lactated Ringers 1,000 ML IV ONE (20:22)
[2018-07-02] MEDS ORDERED: Ondansetron 4 MG/2 ML SDV IVPUSH ONE (20:22)
[2018-07-02] MEDS ORDERED: Ketorolac 30 MG/ML SDV IVPUSH ONE (21:49)
== END 2018-07-02 22:46 | disposition home or self-care (01) ==
LOC: JD.ED 19:28
DX: G44.209 Tension-type headache, unspecified, not intractable (principal); Z88.1 Allergy status to other antibiotic agents; F17.210 Nicotine dependence, cigarettes, uncomplicated
CPT/HCPCS: 96361; 96374; 96375; 99283; J1200; J1885; J2405; J7120; 99284

== ENCOUNTER 2018-07-22 10:34 | Emergency (ER) | payer BC ==
--- NOTE | 2018-07-22 11:03 | EDM.PDOC ---
ED HPI GENERAL MEDICAL PROBLEM - General Chief Complaint: Headache Stated Complaint: HEADACHE X 1 MONTH Time Seen by Provider: 07/22/18 10:42 Source of Information: Reports: Patient History Limitations: Reports: No Limitations - History of Present Illness INITIAL COMMENTS - FREE TEXT/NARRATIVE: 23 yo F comes in today for complaints of headache x 1 month straight with new onset sharp, shooting pain on right side/back of head that started last night and woke her from sleep at 7AM. She recently was treated in the ED 2 weeks ago with Toradol, IVF, Zofran with no relief. She then saw her PCP and had an MRI done on Sunday, saw Neurologist Anshul Benavides in [place] on , and had Spinal tap on Sunday. MRI was normal and Spinal tap results are pending. She is currently complaining of right frontal CUETO (states it does move around the entire head at random times), sensitivity to light, weakness. She denies any F/C , N/V/D, changes in vision, aura. Sleeping is the only thing that helps her headache. Nothing makes it worse. She has tried Naproxen, Excedrin Migraine, Advil/ibuprofen, Pamprin at home with no relief. She does not have any migraine medication at home. She has never had anything like this before. No family history of Migraines. No recent trauma. PCP is Stephanie Hewitt PA-C. Headache Pain Score (Numeric/FACES): 7 - Related Data Allergies Allergy/AdvReac Type Severity Reaction Status Date / Time amoxicillin Allergy Cannot Verified 07/22/18 10:41 Remember Home Meds: Home Meds . 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 (See Below) Other SKULL GRINDER History: chlamydia Musculoskeletal History: Reports: None Neurological History: Reports: None Psychiatric History: Reports: None Endocrine/Metabolic History: Reports: None Hematologic History: Reports: None Immunologic History: Reports: None Oncologic (Cancer) History: Reports: None Dermatologic History: Reports: Other (See Below) Other Dermatologic History: ring worm previously - Infectious Disease History Infectious Disease History: Reports: None - Past Surgical History Head Surgeries/Procedures: Reports: None HEENT Surgical History: Reports: None Female Surgical History: Reports: Ureteral Stent Oncologic Surgical History: Reports: None Social & Family History - Family History Family Medical History: Noncontributory HEENT: Reports: None Cardiac: Reports: Hypertension Respiratory: Reports: None GI: Reports: None : Reports: None OBGYN: Reports: None Musculoskeletal: Reports: None Neurological: Reports: None Endocrine/Metabolic: Reports: Diabetes, type II Dermatologic: Reports: None Oncologic: Reports: None - Tobacco Use Smoking Status *Q: Current Every Day Smoker Years of Tobacco use: 6 Packs/Tins Daily: 0.5 - Caffeine Use Caffeine Use: Reports: Coffee, Energy Drinks, Soda - Recreational Drug Use Recreational Drug Use: No - Living Situation & Occupation Living situation: Reports: Single, with Significant Other (Boyfriend) Occupation: Employed ([employer]) ED [facility] [employer] [facility] [facility] GENERAL - Review of Systems Review Of Systems: See Below Constitutional: Reports: Weakness. Denies: Fever, Chills HEENT: Reports: No Symptoms Respiratory: Reports: No Symptoms Cardiovascular: Reports: No Symptoms Endocrine: Reports: No Symptoms GI/Abdominal: Reports: No Symptoms. Denies: Abdominal Pain, Diarrhea, Nausea, Vomiting : Reports: No Symptoms Musculoskeletal: Reports: No Symptoms Skin: Reports: No Symptoms Neurological: Reports: Headache (right frontal CUETO), Weakness, Other (light- headed). Denies: Numbness, Tingling, Trouble Speaking Psychiatric: Reports: No Symptoms - Physical Exam Exam: See Below Exam Limited By: No Limitations General Appearance: Alert, WD/WN, Mild Distress Eye Exam: Bilateral Eye: EOMI, Normal Inspection, PERRL Ears: Normal External Exam, Hearing Grossly Normal Head Exam: Atraumatic, Normocephalic Neck: Normal Inspection, Supple, Non-Tender, Full Range of Motion Respiratory/Chest: No Respiratory Distress, Lungs Clear, Normal Breath Sounds, No Accessory Muscle Use, Chest Non-Tender Cardiovascular: Normal Peripheral Pulses, Regular Rate, Rhythm, No Edema, No Gallop, No JVD, No Murmur, No Rub GI/Abdominal: Normal Bowel Sounds, Soft, Non-Tender, No Organomegaly, No Distention, No Abnormal Bruit, No Mass Neuro Exam (Abbreviated): Alert, Oriented, CN II-XII Intact, Normal Cognition, Normal Gait, Normal Reflexes, No Motor/Sensory Deficits Psychiatric: Normal Affect, Normal Mood Skin Exam: Warm, Dry, Intact, Normal Color, No Rash Course - Vital Signs Last Recorded V/S: Last Vital Signs Temp 98.1 F 07/22/18 10:45 Pulse 113 H 07/22/18 10:45 Resp 16 07/22/18 10:45 BP 150/88 H 07/22/18 10:45 Pulse Ox 100 07/22/18 10:45 - Orders/Labs/Meds Meds: Medications Discontinued Medications Generic Name Dose Route Start Last Admin Trade Name Freq PRN Reason Stop Dose Admin Benztropine Mesylate 1 mg 07/22/18 11:28 07/22/18 11:41 Cogentin PO 07/22/18 11:29 1 mg ONETIME ONE Administration Haloperidol Lactate 5 mg 07/22/18 11:28 07/22/18 11:41 Haldol IM 07/22/18 11:29 5 mg ONETIME ONE Administration Sodium Chloride 1,000 mls @ 999 mls/hr 07/22/18 11:29 07/22/18 11:45 Normal Saline IV 07/22/18 12:29 999 mls/hr ONETIME ONE Administration - Re-Assessments/Exams Free Text/Narrative Re-Assessment/Exam: 07/22/18 11:29 Ordered Haldol 5mg IM, Cogentin 1mg, 1L bolus IV NS 07/22/18 12:37 The above regimen did not work, which means this is likely not a migraine, so I will not be sending her home with any migraine medication. Discussed that the only thing left to try would be narcotics, but it would only provide temporary relief, could possibly cause rebound headache, and she would not be able to drive. What's most important at this time is to follow up with the neurologist and her PCP to find out what is causing these headaches. She states she understands and is OK being sent home without anything for pain at this time. Departure - Departure Time of Disposition: 12:39 Disposition: Home, Self-Care 01 Condition: Fair Clinical Impression: Headache - Discharge Information *PRESCRIPTION DRUG MONITORING PROGRAM REVIEWED*: Not Applicable *COPY OF PRESCRIPTION DRUG MONITORING REPORT IN PATIENT KACIE: Not Applicable Instructions: General Headache Without Cause, [id number] Referrals: Stephanie Kinney PA-C [Primary Care Provider] - Forms: ED Department Discharge Additional Instructions: You were seen in the ED today for ongoing headache x1 month with new-onset sharp pain to right side and back of head that woke you from sleep. No imaging was deemed necessary, as you recently had full workup with negative MRI this past week. You were given a migraine regimen here with IV fluids which did not prove to be effective, which means this is likely not a migraine headache. Therefore, no reason to send home with prescription migraine medication. The only other option for you at this time is Toradol, which you said has not worked for you in the past. We talked about how narcotics could possibly provide temporary relief, but that the headache will likely come back and could be worse (rebound effect). At this time, you are OK with being sent home with no medication. Recommend ice pack to the headache, rest, and [id number] medication for relief. May also try caffeine, but again, may cause rebound headache. At this time, you are stable to go home. Recommend f/u with your neurologist and primary care provider for further workup for the cause of this headache. Please return to ED if new or worsening symptoms.
[2018-07-22] MEDS ORDERED: Benztropine 1 MG Tab PO ONE (11:28)
[2018-07-22] MEDS ORDERED: Haloperidol Lactate 5 MG/ML SDV IM ONE (11:28)
[2018-07-22] MEDS ORDERED: Sodium Chloride 0.9% 1,000 ML IV ONE (11:29)
== END 2018-07-22 13:05 | disposition home or self-care (01) ==
LOC: JD.ED 10:34
DX: R51 Headache (principal); F17.210 Nicotine dependence, cigarettes, uncomplicated; Z88.1 Allergy status to other antibiotic agents
CPT/HCPCS: 96360; 96372; 99283; A9270; J1630; J7040

== ENCOUNTER 2018-08-04 22:42 | Emergency (ER) | payer BC ==
[2018-08-04] MEDS ORDERED: HYDROmorphone 1 MG/ML Syringe IVPUSH ONE (23:39)
[2018-08-04] MEDS ORDERED: Sodium Chloride 0.9% 10 ML Syringe FLUSH PRN (23:39)
[2018-08-04] MEDS ORDERED: Ondansetron 4 MG/2 ML SDV IVPUSH ONE (23:39)
--- NOTE | 2018-08-05 01:08 | EDM.PDOC ---
ED HPI GENERAL MEDICAL PROBLEM - General Chief Complaint: Headache Stated Complaint: HEADACHE ALL DAY MIGRAINE Time Seen by Provider: 08/04/18 23:06 Source of Information: Reports: Patient History Limitations: Reports: No Limitations - History of Present Illness INITIAL COMMENTS - FREE TEXT/NARRATIVE: The patient presents with a headache. She has had a headache for months. She has been to [facility] and they did a lumbar puncture and other studies. She has been found to have pseudotumor cerebri. She was put on diamox but she had a few side effects with that and it was not working. She has a severe headache tonight. She denies fever, chills, cough, chest pain, shortness of breath, abdominal pain, nausea or vomiting. She does not have anything for pain at home. She has no numbness or weakness. Onset: Gradual Duration: Week(s): Location: Reports: Head Quality: Reports: Sharp Severity: Severe Improves with: Reports: None Worsens with: Reports: None Associated Symptoms: Reports: Headaches. Denies: Chest Pain, Cough, Fever/ Chills, Nausea/Vomiting, Shortness of Breath Headache Pain Score (Numeric/FACES): 10 - Related Data Allergies Allergy/AdvReac Type Severity Reaction Status Date / Time amoxicillin Allergy Cannot Verified 07/22/18 10:41 Remember Home Meds: Home Meds acetaZOLAMIDE [Diamox] 0 mg PO BID 08/04/18 [History] Furosemide [Lasix] 20 mg PO DAILY #30 tab 08/05/18 [Rx] Past Medical History HEENT History: Reports: Impaired Vision, Other (See Below) Other HEENT History: swollen optic nerves Cardiovascular History: Reports: None Respiratory History: Reports: None Gastrointestinal History: Reports: None Genitourinary History: Reports: Renal Calculus 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 (See Below) Other MANAGER STATISTICAL PROGRAMMING History: chlamydia Musculoskeletal History: Reports: None Neurological History: Reports: None, Migraines, Other (See Below) Other Neuro History: pseudo tumor cerebi Psychiatric History: Reports: None Endocrine/Metabolic History: Reports: None Hematologic History: Reports: None Immunologic History: Reports: None Oncologic (Cancer) History: Reports: None Dermatologic History: Reports: Other (See Below) Other Dermatologic History: ring worm previously - Infectious Disease History Infectious Disease History: Reports: None - Past Surgical History Head Surgeries/Procedures: Reports: None HEENT Surgical History: Reports: None Female Surgical History: Reports: Ureteral Stent Oncologic Surgical History: Reports: None Social & Family History - Family History Family Medical History: Noncontributory HEENT: Reports: None Cardiac: Reports: Hypertension Respiratory: Reports: None GI: Reports: None : Reports: None OBGYN: Reports: None Musculoskeletal: Reports: None Neurological: Reports: None Endocrine/Metabolic: Reports: Diabetes, type II Dermatologic: Reports: None Oncologic: Reports: None - Tobacco Use Smoking Status *Q: Current Every Day Smoker Years of Tobacco use: 6 Packs/Tins Daily: 0.5 - Caffeine Use Caffeine Use: Reports: Coffee, Energy Drinks, Soda - Recreational Drug Use Recreational Drug Use: No - Living Situation & Occupation Living situation: Reports: Single, with Significant Other (Boyfriend) Occupation: Employed ([employer]) ED ROS GENERAL - Review of Systems Review Of Systems: See Below Constitutional: Reports: No Symptoms HEENT: Reports: No Symptoms Respiratory: Reports: No Symptoms Cardiovascular: Reports: No Symptoms Endocrine: Reports: No Symptoms GI/Abdominal: Reports: No Symptoms : Reports: No Symptoms Musculoskeletal: Reports: No Symptoms Neurological: Reports: Headache - Physical Exam Exam: See Below Exam Limited By: No Limitations General Appearance: Alert, No Apparent Distress Ears: Normal External Exam Nose: Normal Inspection Head Exam: Atraumatic, Normocephalic Neck: Normal Inspection, Supple, Non-Tender Respiratory/Chest: No Respiratory Distress, Lungs Clear, Normal Breath Sounds Cardiovascular: Regular Rate, Rhythm, No Edema, No Murmur GI/Abdominal: Soft, Non-Tender, No Organomegaly, No Mass Neuro Exam (Abbreviated): Alert, Oriented, No Motor/Sensory Deficits Course - Vital Signs Last Recorded V/S: Last Vital Signs Temp 99.7 F 08/04/18 22:58 Pulse 113 H 08/04/18 22:58 Resp 20 08/04/18 22:58 BP 150/93 H 08/04/18 22:58 Pulse Ox 100 08/04/18 22:58 - Orders/Labs/Meds Orders: Active Orders 24 hr Category Date Time Status Peripheral IV Care [RC] . DIRECTED Care 08/04/18 23:39 Active Sodium Chloride 0.9% [Saline Flush] Med 08/04/18 23:39 Active 10 ml FLUSH ASDIRECTED PRN Peripheral IV Insertion Adult [OM.PC] Routine Oth 08/04/18 23:39 Ordered Medication Orders Sodium Chloride (Saline Flush) 10 ml FLUSH ASDIRECTED PRN PRN Reason: Keep Vein Open Last Admin: 08/04/18 23:58 Dose: 10 ml Meds: Medications Generic Name Dose Route Start Last Admin Trade Name Fresundeep PRN Reason Stop Dose Admin Sodium Chloride 10 ml 08/04/18 23:39 08/04/18 23:58 Saline Flush FLUSH 10 ml ASDIRECTED PRN Administration Keep Vein Open Discontinued Medications Generic Name Dose Route Start Last Admin Trade Name Freq PRN Reason Stop Dose Admin Hydromorphone HCl 1 mg 08/04/18 23:39 08/04/18 23:58 Dilaudid IVPUSH 08/04/18 23:40 1 mg ONETIME ONE Administration Ondansetron HCl 4 mg 08/04/18 23:39 08/04/18 23:58 Zofran IVPUSH 08/04/18 23:40 4 mg ONETIME ONE Administration - Re-Assessments/Exams Free Text/Narrative Re-Assessment/Exam: 08/05/18 01:07 I ordered an IV saline lock, dilaudid 1mg IV, and zofran 4mg IV. The pain is better down to a 6/10. That is tolerable. 08/05/18 01:09 I will try her on some lasix daily and give her something for pain. Departure - Departure Time of Disposition: 01:10 Disposition: Home, Self-Care 01 Condition: Good Clinical Impression: Pseudotumor cerebri - Discharge Information *PRESCRIPTION DRUG MONITORING PROGRAM REVIEWED*: No *COPY OF PRESCRIPTION DRUG MONITORING REPORT IN PATIENT KACIE: No Prescriptions: Furosemide [Lasix] 20 mg PO DAILY #30 tab Referrals: Stephanie Kinney PA-C [Primary Care Provider] - 1 Week Forms: ED Department Discharge Additional Instructions: Try taking the lasix daily. Take the percocet as needed for pain. Please return if you are worse. Follow up with your doctor in 1 week. - My Orders Last 24 Hours: My Active Orders 08/04/18 23:39 Peripheral IV Care [RC] . DIRECTED Sodium Chloride 0.9% [Saline Flush] 10 ml FLUSH ASDIRECTED PRN Peripheral IV Insertion Adult [OM.PC] Routine - Assessment/Plan Last 24 Hours: My Active Orders 08/04/18 23:39 Peripheral IV Care [RC] . DIRECTED Sodium Chloride 0.9% [Saline Flush] 10 ml FLUSH ASDIRECTED PRN Peripheral IV Insertion Adult [OM.PC] Routine
[2018-08-05] MEDS ORDERED: Ondansetron 4 MG/2 ML SDV IVPUSH ONE (01:33)
== END 2018-08-05 01:40 | disposition home or self-care (01) ==
LOC: JD.ED 22:42
DX: G93.2 Benign intracranial hypertension (principal); F17.210 Nicotine dependence, cigarettes, uncomplicated; Z88.1 Allergy status to other antibiotic agents
CPT/HCPCS: 96374; 96375; 96376; 99283; J1170; J2405; 99284

== ENCOUNTER 2018-08-07 19:32 | Emergency (ER) | payer BC ==
--- NOTE | 2018-08-07 20:51 | EDM.PDOC ---
ED HPI GENERAL MEDICAL PROBLEM - General Chief Complaint: Headache Stated Complaint: headache Time Seen by Provider: 08/07/18 19:58 Source of Information: Reports: Patient History Limitations: Reports: No Limitations - History of Present Illness INITIAL COMMENTS - FREE TEXT/NARRATIVE: 23 yo F w/ Pseudotumor Cerebri comes in today for chronic headache. She was here just 3 days ago for similar symptoms, was given Dilaudid here and sent home with Percocet -which the Percocet is no longer helping. She states "I just want relief". She states she was put on Diamox, the standard of treatment for this condition by her neurologist, but she had an adverse reaction (numbness in the feet) and so the medication was stopped and she was put on Lasix. She is sensitive to light and noise. No other symptoms at this time. PCP is Stephanie Kinney PA-C- last seen 1 month ago, has appointment on Sunday. Neurologist is Dalia Benavides at [facility]- last seen 1 month ago. She has an MRI scheduled for tomorrow. 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 (See Below) Other [employer]ARKING [employer] ATTENDANT AND CASHIER History: chlamydia Musculoskeletal History: Reports: None Neurological History: Reports: None, Migraines, Other (See Below) Other Neuro History: pseudo tumor cerebi Psychiatric History: Reports: None Endocrine/Metabolic History: Reports: None Hematologic History: Reports: None Immunologic History: Reports: None Oncologic (Cancer) History: Reports: None Dermatologic History: Reports: Other (See Below) Other Dermatologic History: ring worm previously - Infectious Disease History Infectious Disease History: Reports: None - Past Surgical History Head Surgeries/Procedures: Reports: None HEENT Surgical History: Reports: None Female Surgical History: Reports: Ureteral Stent Oncologic Surgical History: Reports: None Social & Family History - Family History Family Medical History: Noncontributory HEENT: Reports: None Cardiac: Reports: Hypertension Respiratory: Reports: None GI: Reports: None : Reports: None OBGYN: Reports: None Musculoskeletal: Reports: None Neurological: Reports: None Endocrine/Metabolic: Reports: Diabetes, type II Dermatologic: Reports: None Oncologic: Reports: None - Tobacco Use Smoking Status *Q: Current Every Day Smoker Years of Tobacco use: 6 Packs/Tins Daily: 0.5 - Caffeine Use Caffeine Use: Reports: Coffee - Recreational Drug Use Recreational Drug Use: No - Living Situation & Occupation Living situation: Reports: Single, with Significant Other (Boyfriend) Occupation: Employed ([employer]) ED ROS GENERAL - Review of Systems Review Of Systems: ROS reveals no pertinent complaints other than HPI. - Physical Exam Exam: See Below Exam Limited By: No Limitations General Appearance: Alert, WD/WN, Mild Distress Eye Exam: Bilateral Eye: EOMI, Normal Inspection, PERRL Ears: Normal External Exam, Hearing Grossly Normal Nose: Normal Inspection Throat/Mouth: Normal Inspection Head Exam: Atraumatic, Normocephalic Neck: Normal Inspection, Supple, Non-Tender, Full Range of Motion Respiratory/Chest: No Respiratory Distress, Lungs Clear, Normal Breath Sounds, No Accessory Muscle Use, Chest Non-Tender Cardiovascular: Normal Peripheral Pulses, Regular Rate, Rhythm Neuro Exam (Abbreviated): Alert, Oriented, CN II-XII Intact, Normal Cognition, Normal Gait, Normal Reflexes, No Motor/Sensory Deficits Psychiatric: Normal Affect, Normal Mood Skin Exam: Warm, Dry, Intact, Normal Color, No Rash Course - Vital Signs Last Recorded V/S: Last Vital Signs Temp 98 F 08/07/18 19:38 Pulse 109 H 08/07/18 19:38 Resp 16 08/07/18 19:38 BP 156/96 H 08/07/18 19:38 Pulse Ox 98 08/07/18 19:38 Departure - Departure Time of Disposition: 20:28 Disposition: Home, Self-Care 01 Condition: Fair Clinical Impression: Pseudotumor cerebri Headache Qualifiers: Headache type: unspecified Headache chronicity pattern: chronic headache - Discharge Information *PRESCRIPTION DRUG MONITORING PROGRAM REVIEWED*: Not Applicable *COPY OF PRESCRIPTION DRUG MONITORING REPORT IN PATIENT KACIE: Not Applicable Instructions: Pseudotumor Cerebri Referrals: Stephanie Kinney PA-C [Primary Care Provider] - Forms: ED Department Discharge Additional Instructions: You were seen in the ED today for chronic headache, likely a symptom of your recently diagnosed Pseudotumor Cerebri. You were offered Diamox, as this is the standard of treatment for this condition, but you stated that you had adverse symptoms to this drug. You are already on the treatment regimen for your condition, which is Lasix. At this time, I have offered a stronger anti- inflammatory drug and other non-narcotic options, but we have tried it in the past without relief. You have decided to not get this treatment while here. Unfortunately, narcotics are not a good option for you as it will likely cause rebound headaches. Recommend follow up with your neurologist and primary care provider for further evaluation and treatment. Please return to ED if new or worsening symptoms.
== END 2018-08-07 21:03 | disposition home or self-care (01) ==
LOC: JD.ED 19:32
DX: G93.2 Benign intracranial hypertension (principal); F17.210 Nicotine dependence, cigarettes, uncomplicated; Z88.1 Allergy status to other antibiotic agents; Z79.899 Other long term (current) drug therapy
CPT/HCPCS: 99283

== ENCOUNTER 2018-12-12 13:32 | Emergency (ER) | payer BC ==
[2018-12-12] MEDS ORDERED: HYDROmorphone 0.5 MG/0.5 ML Syringe IVPUSH ONE ×2 (14:41→17:05)
[2018-12-12] MEDS ORDERED: Sodium Chloride 0.9% 10 ML Syringe FLUSH PRN (14:41)
[2018-12-12] MEDS ORDERED: Ondansetron 4 MG/2 ML SDV IVPUSH ONE ×2 (14:41→17:05)
[2018-12-12] MEDS ORDERED: Sodium Chloride 0.9% 1,000 ML IV ONE (14:41)
--- NOTE | 2018-12-12 15:05 | EDM.PDOC ---
ED HPI GENERAL MEDICAL PROBLEM - General Chief Complaint: Abdominal Pain Stated Complaint: ABD PAIN Time Seen by Provider: 12/12/18 14:20 Source of Information: Reports: Patient History Limitations: Reports: No Limitations - History of Present Illness INITIAL COMMENTS - FREE TEXT/NARRATIVE: 23-year-old female presents for evaluation and treatment of abdominal pain. Patient reports she's been experiencing pain for about the last 36 hours. Reports pain primarily to the right upper quadrant. She states is constant pain and describes as a squeezing sensation. She has not tried any medications such as antacids, Tylenol or Motrin. She has never had anything like this before. She reports symptoms of nausea, chills and decreased appetite. She denies any chest pain, shortness of breath, fevers or any vomiting. No urinary symptoms such as dysuria or hematuria. Reports that she had a half a bowl of soup today around noon, has a decreased appetite. No history of any abdominal surgeries; still has her gallbladder and appendix. Primary care provider is Leela Chase. Patient reports a history of kidney stones. States this is does not feel similar. Right Upper Abdominal Pain Score (Numeric/FACES): 6 - Related Data Allergies Allergy/AdvReac Type Severity Reaction Status Date / Time amoxicillin Allergy Cannot Verified 12/12/18 13:39 Remember Home Meds: Home Meds Acetaminophen/HYDROcodone [[place] 325-5 MG] 1 tab PO Q6H PRN #15 tablet 12/12/18 [Rx] Levofloxacin [Levaquin] 750 mg PO DAILY #6 tablet 12/12/18 [Rx] Ondansetron [Zofran ODT] 4 mg PO Q6H PRN #20 tab.dis 12/12/18 [Rx] Past Medical History HEENT History: Reports: Impaired Vision, Other (See Below) Other HEENT History: swollen optic nerves Cardiovascular History: Reports: None Respiratory History: Reports: None Gastrointestinal History: Reports: None Genitourinary History: Reports: Renal Calculus 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: chlamydia Musculoskeletal History: Reports: None Neurological History: Reports: None, Headaches, Chronic, Migraines, Other (See Below) Other Neuro History: pseudo tumor cerebi Psychiatric History: Reports: None Endocrine/Metabolic History: Reports: None Hematologic History: Reports: None Immunologic History: Reports: None Oncologic (Cancer) History: Reports: None Dermatologic History: Reports: Other (See Below) Other Dermatologic History: ring worm previously - Infectious Disease History Infectious Disease History: Reports: None - Past Surgical History Head Surgeries/Procedures: Reports: None HEENT Surgical History: Reports: None Female Surgical History: Reports: Ureteral Stent Oncologic Surgical History: Reports: None Social & Family History - Family History Family Medical History: Noncontributory HEENT: Reports: None Cardiac: Reports: Hypertension Respiratory: Reports: None GI: Reports: None : Reports: None OBGYN: Reports: None Musculoskeletal: Reports: None Neurological: Reports: None Endocrine/Metabolic: Reports: Diabetes, type II Dermatologic: Reports: None Oncologic: Reports: None - Tobacco Use Smoking Status *Q: Current Every Day Smoker Years of Tobacco use: 7 Packs/Tins Daily: 0.5 - Caffeine Use Caffeine Use: Reports: Energy Drinks - Recreational Drug Use Recreational Drug Use: No - Living Situation & Occupation Living situation: Reports: Single, with Significant Other (Boyfriend) Occupation: Employed ([employer]) ED ROS GENERAL - Review of Systems Review Of Systems: See Below Constitutional: Reports: Chills, Decreased Appetite. Denies: Fever Respiratory: Denies: Shortness of Breath Cardiovascular: Denies: Chest Pain GI/Abdominal: Reports: Abdominal Pain (RUQ), Nausea. Denies: Vomiting : Reports: No Symptoms ED EXAM, GI/ABD - Physical Exam Exam: See Below Exam Limited By: No Limitations General Appearance: Alert, WD/WN, No Apparent Distress Nose: Normal Inspection Throat/Mouth: Normal Inspection, Normal Voice, No Airway Compromise Respiratory/Chest: No Respiratory Distress, Lungs Clear, Normal Breath Sounds Cardiovascular: Normal Peripheral Pulses, Regular Rate, Rhythm, No Murmur GI/Abdominal Exam: Normal Bowel Sounds, Soft, Tender (+ RUQ), Other (- muphys sign; negative obturator and psosas signs) Neurological: Alert, Oriented, Normal Cognition Psychiatric: Normal Affect, Normal Mood Skin Exam: Warm, Dry, Normal Color Course - Vital Signs Last Recorded V/S: Last Vital Signs Temp 98 F 12/12/18 13:37 Pulse 111 H 12/12/18 13:37 Resp 16 12/12/18 13:37 BP 136/87 12/12/18 13:37 Pulse Ox 97 12/12/18 13:37 - Orders/Labs/Meds Labs: Laboratory Tests 12/12/18 12/12/18 12/12/18 Range/Units 15:00 15:00 15:20 WBC 4.55 (3.98-10.04) K/mm3 RBC 4.39 (3.98-5.22) M/mm3 Hgb 13.7 (11.2-15.7) gm/dl Hct 40.0 (34.1-44.9) % MCV 91.1 (79.4-94.8) fl MCH 31.2 (25.6-32.2) pg MCHC 34.3 (32.2-35.5) g/dl RDW Std Deviation 42.0 (36.4-46.3) fL Plt Count 319 (182-369) K/mm3 MPV 8.8 L (9.4-12.3) fl Neutrophils % (Manual) 67 H (40-60) % Band Neutrophils % 0 (0-10) % Lymphocytes % (Manual) 27 (20-40) % Atypical Lymphs % 0 % Monocytes % (Manual) 5 (2-10) % Eosinophils % (Manual) 1 (0.7-5.8) % Basophils % (Manual) 0 L (0.1-1.2) Platelet Estimate Adequate RBC Morph Comment Normal Sodium (136-145) mEq/L Potassium (3.5-5.1) mEq/L Chloride (98-107) mEq/L Carbon Dioxide (21-32) mEq/L Anion Gap (5-15) BUN (7-18) mg/dL Creatinine (0.55-1.02) mg/dL Est Cr Clr Drug Dosing mL/min Estimated GFR (MDRD) (>60) mL/min BUN/Creatinine Ratio (14-18) Glucose (74-106) mg/dL Calcium (8.5-10.1) mg/dL Total Bilirubin (0.2-1.0) mg/dL AST (15-37) U/L ALT (14-59) U/L Alkaline Phosphatase (46-116) U/L C-Reactive Protein (<1.0) mg/dL Total Protein (6.4-8.2) g/dl Albumin (3.4-5.0) g/dl Globulin gm/dL Albumin/Globulin Ratio (1-2) Lipase (73-393) U/L Urine Color Yellow (Yellow) Urine Appearance Cloudy H (Clear) Urine pH 7.0 (5.0-8.0) Ur Specific [place] 1.020 (1.005-1.030) Urine Protein Trace H (Negative) Urine Glucose (UA) Negative (Negative) Urine Ketones Negative (Negative) Urine Occult Blood Trace-lysed H (Negative) Urine Nitrite Positive H (Negative) Urine Bilirubin Negative (Negative) Urine Urobilinogen 0.2 (0.2-1.0) Ur Leukocyte Esterase Trace H (Negative) Urine RBC 0-5 (0-5) /hpf Urine WBC 40-50 H (0-5) /hpf Ur Squamous Epith Cells 30-40 H (0-5) /hpf Urine Bacteria Many H (FEW) /hpf Urine Mucus Not seen (FEW) /hpf Urine HCG, Qual Negative (NEGATIVE) 12/12/18 Range/Units 15:20 WBC (3.98-10.04) K/mm3 RBC (3.98-5.22) M/mm3 Hgb (11.2-15.7) gm/dl Hct (34.1-44.9) % MCV (79.4-94.8) fl MCH (25.6-32.2) pg MCHC (32.2-35.5) g/dl RDW Std Deviation (36.4-46.3) fL Plt Count (182-369) K/mm3 MPV (9.4-12.3) fl Neutrophils % (Manual) (40-60) % Band Neutrophils % (0-10) % Lymphocytes % (Manual) (20-40) % Atypical Lymphs % % Monocytes % (Manual) (2-10) % Eosinophils % (Manual) (0.7-5.8) % Basophils % (Manual) (0.1-1.2) Platelet Estimate RBC Morph Comment Sodium 141 (136-145) mEq/L Potassium 4.2 (3.5-5.1) mEq/L Chloride 106 (98-107) mEq/L Carbon Dioxide 26 (21-32) mEq/L Anion Gap 13.2 (5-15) BUN 11 (7-18) mg/dL Creatinine 0.7 (0.55-1.02) mg/dL Est Cr Clr Drug Dosing 114.40 mL/min Estimated GFR (MDRD) > 60 (>60) mL/min BUN/Creatinine Ratio 15.7 (14-18) Glucose 87 (74-106) mg/dL Calcium 9.1 (8.5-10.1) mg/dL Total Bilirubin 0.3 (0.2-1.0) mg/dL AST 11 L (15-37) U/L ALT 25 (14-59) U/L Alkaline Phosphatase 57 (46-116) U/L C-Reactive Protein 5.3 H* (<1.0) mg/dL Total Protein 7.4 (6.4-8.2) g/dl Albumin 3.7 (3.4-5.0) g/dl Globulin 3.7 gm/dL Albumin/Globulin Ratio 1.0 (1-2) Lipase 93 (73-393) U/L Urine Color (Yellow) Urine Appearance (Clear) Urine pH (5.0-8.0) Ur Specific [place] (1.005-1.030) Urine Protein (Negative) Urine Glucose (UA) (Negative) Urine Ketones (Negative) Urine Occult Blood (Negative) Urine Nitrite (Negative) Urine Bilirubin (Negative) Urine Urobilinogen (0.2-1.0) Ur Leukocyte Esterase (Negative) Urine RBC (0-5) /hpf Urine WBC (0-5) /hpf Ur Squamous Epith Cells (0-5) /hpf Urine Bacteria (FEW) /hpf Urine Mucus (FEW) /hpf Urine HCG, Qual (NEGATIVE) Meds: Medications Discontinued Medications Generic Name Dose Route Start Last Admin Trade Name Freq PRN Reason Stop Dose Admin Hydromorphone HCl 0.5 mg 12/12/18 14:41 12/12/18 15:01 Dilaudid IVPUSH 12/12/18 14:42 0.5 mg ONETIME ONE Administration Hydromorphone HCl 0.5 mg 12/12/18 17:05 12/12/18 17:34 Dilaudid IVPUSH 12/12/18 17:06 0.5 mg ONETIME ONE Administration Sodium Chloride 1,000 mls @ 999 mls/hr 12/12/18 14:41 12/12/18 15:02 Normal Saline IV 12/12/18 15:41 999 mls/hr ONETIME ONE Administration Levofloxacin/Dextrose 750 mg/ 150 mls @ 100 mls/hr 12/12/18 17:05 12/12/18 17 :35 Premix IV 12/12/18 18:34 100 mls/hr ONETIME ONE Administration Ondansetron HCl 4 mg 12/12/18 14:41 12/12/18 15:01 Zofran IVPUSH 12/12/18 14:42 4 mg ONETIME ONE Administration Ondansetron HCl 4 mg 12/12/18 17:05 12/12/18 17:30 Zofran IVPUSH 12/12/18 17:06 4 mg ONETIME ONE Administration Sodium Chloride 10 ml 12/12/18 14:41 12/12/18 15:02 Saline Flush FLUSH 10 ml ASDIRECTED PRN Administration Keep Vein Open - Re-Assessments/Exams Free Text/Narrative Re-Assessment/Exam: 12/12/18 17:06 Checked on the patient. I reviewed her labs with her. This pain is likely coming from pyelonephritis. We'll treat her with some IV Levaquin. She reports the pain is coming back. Plan will be to treat her with close follow-up. Also still could be her gallbladder. this is felt to be less likely with the kidney infection. She has no concerns for any STDs. She denies any vaginal discharge. Urine will be sent for culture. 12/12/18 18:01 Checked and the patient. Reports pain is improved with the Dilaudid. We will plan to treat her for kidney infection. Her pain was so only right upper quadrant and is still possible that this is biliary colic. liver enzymes are unremarkable. I will have her in follow up with her primary care provider. Discharge instructions as documented. Departure - Departure Time of Disposition: 18:02 Disposition: Home, Self-Care 01 Condition: Fair Clinical Impression: Pyelonephritis - Discharge Information *PRESCRIPTION DRUG MONITORING PROGRAM REVIEWED*: No *COPY OF PRESCRIPTION DRUG MONITORING REPORT IN PATIENT KACIE: No Prescriptions: Acetaminophen/HYDROcodone [[place] 325-5 MG] 1 tab PO Q6H PRN #15 tablet PRN Reason: Pain Levofloxacin [Levaquin] 750 mg PO DAILY #6 tablet Ondansetron [Zofran ODT] 4 mg PO Q6H PRN #20 tab.dis PRN Reason: Nausea Instructions: Pyelonephritis, Adult Referrals: Stephanie Kinney PA-C [Primary Care Provider] - Forms: ED Department Discharge Additional Instructions: you were Given medication in the ER that can affect your ability to drive and operate machinery. Do not drive or operate machinery within 10 hours of taking prescription narcotic pain medication. Zofran 1 tab sublingual every 6-8 hours prn nausea. levaquin 1 tab PO daily x 7 days, first dose given in the ER; start your Rx tomorrow. Ibuprofen 600-800 mg every 6 hours as needed for pain. For pain not relieve ibuprofen you may take [place] one tablet every 6 hours. [place] is habit-forming, take as few these as needed to control your pain. Do not drive or operate machinery within 10 hours of taking prescription narcotic pain medication. Follow up with your primary care provider Sunday or Sunday next week for recheck of your symptoms. If you continue to have symptoms consideration of biliary colic should be explored. Please return to the ER if your symptoms change or worsen.
[2018-12-12] MEDS ORDERED: Levofloxacin/Dextrose 5%-Water 750 MG in Premix Bag 1 BAG IV ONE (17:05)
== END 2018-12-12 19:05 | disposition home or self-care (01) ==
LOC: JD.ED 13:32
DX: N12 Tubulo-interstitial nephritis, not specified as acute or chronic (principal); F17.210 Nicotine dependence, cigarettes, uncomplicated; Z88.1 Allergy status to other antibiotic agents; Z79.899 Other long term (current) drug therapy
CPT/HCPCS: 36415; 80053; 81001; 81025; 83690; 85007; 85027; 86140; 87086; 87088; 87186; 96361; 96365; 96375; 96376; 99284; J1170; J1956; J2405; J7040

== ENCOUNTER 2019-05-08 15:39 | Emergency (ER) | payer BC ==
[2019-05-08] MEDS ORDERED: Sodium Chloride 0.9% 10 ML Syringe FLUSH PRN (16:15)
[2019-05-08] MEDS ORDERED: HYDROmorphone 0.5 MG/0.5 ML Syringe IVPUSH ONE ×2 (16:16→19:07)
[2019-05-08] MEDS ORDERED: Ondansetron 4 MG/2 ML SDV IVPUSH ONE (16:16)
[2019-05-08] MEDS ORDERED: Sodium Chloride 0.9% 1,000 ML IV SCH (16:30)
--- NOTE | 2019-05-08 18:52 | EDM.PDOC ---
<Ariel Diaz - Last Filed: 05/08/19 20:41> ED HPI GENERAL MEDICAL PROBLEM - General Chief Complaint: Abdominal Pain Stated Complaint: RIGHT SIDE PAIN [id number] Time Seen by Provider: 05/08/19 16:03 - Related Data Allergies Allergy/AdvReac Type Severity Reaction Status Date / Time amoxicillin Allergy Cannot Verified 05/08/19 15:55 Remember Course - Vital Signs Last Recorded V/S: Last Vital Signs Temp 98.4 F 05/08/19 15:55 Pulse 103 H 05/08/19 15:55 Resp 16 05/08/19 15:55 BP 136/84 05/08/19 15:55 Pulse Ox 100 05/08/19 15:55 - Orders/Labs/Meds Labs: Laboratory Tests 05/08/19 05/08/19 05/08/19 Range/Units 16:17 16:17 16:17 WBC 8.02 (3.98-10.04) K/mm3 RBC 4.42 (3.98-5.22) M/mm3 Hgb 13.8 (11.2-15.7) gm/dl Hct 40.4 (34.1-44.9) % MCV 91.4 (79.4-94.8) fl MCH 31.2 (25.6-32.2) pg MCHC 34.2 (32.2-35.5) g/dl RDW Std Deviation 40.6 (36.4-46.3) fL Plt Count 337 (182-369) K/mm3 MPV 8.6 L (9.4-12.3) fl Neut % (Auto) 54.4 (34.0-71.1) % Lymph % (Auto) 39.5 (19.3-51.7) % [place] % (Auto) 4.6 L (4.7-12.5) % Eos % (Auto) 1.1 (0.7-5.8) Baso % (Auto) 0.2 (0.1-1.2) % Neut # (Auto) 4.35 (1.56-6.13) K/mm3 Lymph # (Auto) 3.17 (1.18-3.74) K/mm3 [place] # (Auto) 0.37 H (0.24-0.36) K/mm3 Eos # (Auto) 0.09 (0.04-0.36) K/mm3 Baso # (Auto) 0.02 (0.01-0.08) K/mm3 Sodium 139 (136-145) mEq/L Potassium 3.9 (3.5-5.1) mEq/L Chloride 104 (98-107) mEq/L Carbon Dioxide 24 (21-32) mEq/L Anion Gap 14.9 (5-15) BUN 12 (7-18) mg/dL Creatinine 0.8 (0.55-1.02) mg/dL Est Cr Clr Drug Dosing 99.25 mL/min Estimated GFR (MDRD) > 60 (>60) mL/min BUN/Creatinine Ratio 15.0 (14-18) Glucose 87 (74-106) mg/dL Calcium 9.1 (8.5-10.1) mg/dL Total Bilirubin 0.3 (0.2-1.0) mg/dL GGT 21 (5-55) U/L AST 14 L (15-37) U/L ALT 28 (14-59) U/L Alkaline Phosphatase 56 (46-116) U/L Total Protein 7.9 (6.4-8.2) g/dl Albumin 4.2 (3.4-5.0) g/dl Globulin 3.7 gm/dL Albumin/Globulin Ratio 1.1 (1-2) Lipase 85 (73-393) U/L HCG, Qual Negative (NEGATIVE) Urine Color (Yellow) Urine Appearance (Clear) Urine pH (5.0-8.0) Ur Specific [place] (1.005-1.030) Urine Protein (Negative) Urine Glucose (UA) (Negative) Urine Ketones (Negative) Urine Occult Blood (Negative) Urine Nitrite (Negative) Urine Bilirubin (Negative) Urine Urobilinogen (0.2-1.0) Ur Leukocyte Esterase (Negative) Urine RBC (0-5) /hpf Urine WBC (0-5) /hpf Ur Squamous Epith Cells (0-5) /hpf Urine Bacteria (FEW) /hpf Urine Mucus (FEW) /hpf 05/08/19 Range/Units 19:05 WBC (3.98-10.04) K/mm3 RBC (3.98-5.22) M/mm3 Hgb (11.2-15.7) gm/dl Hct (34.1-44.9) % MCV (79.4-94.8) fl MCH (25.6-32.2) pg MCHC (32.2-35.5) g/dl RDW Std Deviation (36.4-46.3) fL Plt Count (182-369) K/mm3 MPV (9.4-12.3) fl Neut % (Auto) (34.0-71.1) % Lymph % (Auto) (19.3-51.7) % [place] % (Auto) (4.7-12.5) % Eos % (Auto) (0.7-5.8) Baso % (Auto) (0.1-1.2) % Neut # (Auto) (1.56-6.13) K/mm3 Lymph # (Auto) (1.18-3.74) K/mm3 [place] # (Auto) (0.24-0.36) K/mm3 Eos # (Auto) (0.04-0.36) K/mm3 Baso # (Auto) (0.01-0.08) K/mm3 Sodium (136-145) mEq/L Potassium (3.5-5.1) mEq/L Chloride (98-107) mEq/L Carbon Dioxide (21-32) mEq/L Anion Gap (5-15) BUN (7-18) mg/dL Creatinine (0.55-1.02) mg/dL Est Cr Clr Drug Dosing mL/min Estimated GFR (MDRD) (>60) mL/min BUN/Creatinine Ratio (14-18) Glucose (74-106) mg/dL Calcium (8.5-10.1) mg/dL Total Bilirubin (0.2-1.0) mg/dL GGT (5-55) U/L AST (15-37) U/L ALT (14-59) U/L Alkaline Phosphatase (46-116) U/L Total Protein (6.4-8.2) g/dl Albumin (3.4-5.0) g/dl Globulin gm/dL Albumin/Globulin Ratio (1-2) Lipase (73-393) U/L HCG, Qual (NEGATIVE) Urine Color Yellow (Yellow) Urine Appearance Clear (Clear) Urine pH 6.5 (5.0-8.0) Ur Specific [place] > or = 1.030 (1.005-1.030) Urine Protein Negative (Negative) Urine Glucose (UA) Negative (Negative) Urine Ketones Trace H (Negative) Urine Occult Blood Trace-intact H (Negative) Urine Nitrite Negative (Negative) Urine Bilirubin Negative (Negative) Urine Urobilinogen 0.2 (0.2-1.0) Ur Leukocyte Esterase Negative (Negative) Urine RBC 0-5 (0-5) /hpf Urine WBC 0-5 (0-5) /hpf Ur Squamous Epith Cells 5-10 H (0-5) /hpf Urine Bacteria Few (FEW) /hpf Urine Mucus Few (FEW) /hpf Meds: Medications Discontinued Medications Generic Name Dose Route Start Last Admin Trade Name Freq PRN Reason Stop Dose Admin Hydromorphone HCl 0.5 mg 05/08/19 16:16 05/08/19 16:37 Dilaudid IVPUSH 05/08/19 16:17 0.5 mg ONETIME ONE Administration Hydromorphone HCl 0.5 mg 05/08/19 19:07 05/08/19 19:14 Dilaudid IVPUSH 05/08/19 19:08 0.5 mg ONETIME ONE Administration Hydromorphone HCl Confirm 05/08/19 19:09 05/08/19 19:14 Dilaudid Administered 05/08/19 19:10 Not Given Dose 0.5 mg .ROUTE .STK-MED ONE Sodium Chloride 1,000 mls @ 150 mls/hr 05/08/19 16:30 05/08/19 16:24 Normal Saline IV 150 mls/hr ASDIRECTED JAMES Administration Magnesium Citrate 180 ml 05/08/19 20:40 05/08/19 20:49 Citrate Of Magnesia PO 05/08/19 20:41 180 ml ONETIME ONE Administration Ondansetron HCl 4 mg 05/08/19 16:16 05/08/19 16:24 Zofran IVPUSH 05/08/19 16:17 4 mg ONETIME ONE Administration Sodium Chloride 10 ml 05/08/19 16:15 05/08/19 16:26 Saline Flush FLUSH 10 ml ASDIRECTED PRN Administration Keep Vein Open - Re-Assessments/Exams Free Text/Narrative Re-Assessment/Exam: 05/08/19 20:29 care was assumed from Dr. Platt at change of shift. The patient was awaiting an ultrasound of her gallbladder. Report is now back showing gallbladder shows no shadowing or gallstones. No gallbladder wall thickening or biliary duct dilatation identified. Right kidney shows no hydronephrosis or mass. Right kidney has a length of 10.8 cm. There is no evidence of any obstructive uropathy. KUB done reveals increased stool throughout the right hemicolon and in particular the hepatic flexure and mid transverse colon. The vault is empty. There is mild increased stool in the left descending colon as well. This is most likely the source of her recurrent pain. Departure - Departure Time of Disposition: 20:41 Disposition: Home, Self-Care 01 Condition: Fair Clinical Impression: Constipation by delayed colonic transit Abdominal pain Qualifiers: Abdominal location: right upper quadrant Qualified Code(s): R10.11 - Right upper quadrant pain - Discharge Information *PRESCRIPTION DRUG MONITORING PROGRAM REVIEWED*: Not Applicable *COPY OF PRESCRIPTION DRUG MONITORING REPORT IN PATIENT KACIE: Not Applicable Instructions: Constipation, Adult, [id number], Abdominal Pain, Adult, Easy-to -Read Referrals: Stephanie Kinney PA-C [Primary Care Provider] - Forms: ED Department Discharge Additional Instructions: Evaluation the emergent today carried out by Dr. Martinez in regards to recurrence of right upper quadrant abdominal pain. Investigations of your gallbladder did not yield any positive results. Lab tests today on proved to be normal. An ultrasound of the gallbladder was repeated today and it shows no signs of any gallstones or gallbladder wall thickening or indication at the gallbladder has been infected before. The right kidney is also normal with no signs of any kidney stones. An X-ray of the abdomen confirms increased stool throughout the right hemicolon particularly a just underneath your liver right over where your gallbladder resides. Therefore the problem is right-sided constipation. There is very minimal stool in the left descending colon the rectal vault is empty it's not like you have not been having bowel movements. Already has backed up and cause a stool plug in your right side which is causing intermittent pain. Been to be magnesium citrate or Citroma 6 ounces taken by mouth was 6 ounces of juice of choice which will start work in an hour to produce usually 3 or possibly 4 bowel movements and should relieve your pain totally. You may eat and drink per normal. I would suggest a trial of MiraLAX powder 17 g or 1 scoop daily or every other day for the next month to 6 weeks event constipation from occurring and likely prevent any further problems with abdominal pain. Follow-up with your personal care physician if any further problems occur Sepsis Event Note - Focused Exam Date Exam was Performed: 05/08/19 Time Exam was Performed: 20:41 <Felipe Cedeno Avinash - Last Filed: 05/12/19 10:21> ED HPI GENERAL MEDICAL PROBLEM - General Source of Information: Reports: Patient, RN Notes Reviewed - History of Present Illness INITIAL COMMENTS - FREE TEXT/NARRATIVE: 24-year-old female presents to the ED with 3 day history abdominal pain right upper quadrant area. She describes this as a sharp ache that "does not go away ". She has had decreased appetite, some nausea but no vomiting. The pain does radiate to her right flank but not clear to her right back. She also does have history of kidney stones but this "feels different". She states she did have ultrasound gallbladder about a year ago and also what sounds like a HIDA scan which "all checked out normal". She later told me that she had continued discomfort for about 3 months that did eventually go away. There is been no fever or chills. No chest pain or difficulty breathing. No voiding symptomatology. Right Upper Abdomen Pain Score (Numeric/FACES): 8 Past Medical History HEENT History: Reports: Impaired Vision, Other (See Below) Other HEENT History: swollen optic nerves Cardiovascular History: Reports: None Respiratory History: Reports: None Gastrointestinal History: Reports: None Genitourinary History: Reports: Renal Calculus ROOFER HELPER History: Reports: None Other ROOFER HELPER History: chlamydia Musculoskeletal History: Reports: None Neurological History: Reports: None, Headaches, Chronic, Migraines, Other (See Below) Other Neuro History: pseudo tumor cerebi Psychiatric History: Reports: None Endocrine/Metabolic History: Reports: None Hematologic History: Reports: None Immunologic History: Reports: None Oncologic (Cancer) History: Reports: None Dermatologic History: Reports: Other (See Below) Other Dermatologic History: ring worm previously - Infectious Disease History Infectious Disease History: Reports: None - Past Surgical History Head Surgeries/Procedures: Reports: None HEENT Surgical History: Reports: None Oncologic Surgical History: Reports: None Social & Family History - Family History Family Medical History: Noncontributory HEENT: Reports: None Cardiac: Reports: Hypertension Respiratory: Reports: None GI: Reports: None : Reports: None OBGYN: Reports: None Musculoskeletal: Reports: None Neurological: Reports: None Endocrine/Metabolic: Reports: Diabetes, type II Dermatologic: Reports: None Oncologic: Reports: None - Tobacco Use Smoking Status *Q: Current Every Day Smoker Years of Tobacco use: 7 Packs/Tins Daily: 0.5 - Caffeine Use Caffeine Use: Reports: Coffee, Energy Drinks, Soda - Recreational Drug Use Recreational Drug Use: No - Living Situation & Occupation Living situation: Reports: Single, with Significant Other (Boyfriend) Occupation: Employed ([employer]) ED ROS GENERAL - Review of Systems Review Of Systems: See Below Constitutional: Denies: Fever, Chills, Diaphoresis HEENT: Reports: No Symptoms Respiratory: Denies: Shortness of Breath, Pleuritic Chest Pain, Cough Cardiovascular: Denies: Chest Pain GI/Abdominal: Reports: Abdominal Pain, Decreased Appetite, Nausea. Denies: Constipation, Diarrhea, Vomiting : Reports: No Symptoms Musculoskeletal: Reports: No Symptoms Skin: Reports: No Symptoms Neurological: Reports: No Symptoms ED EXAM, GI/ABD - Physical Exam Exam: See Below General Appearance: Alert, Mild Distress Throat/Mouth: Normal Inspection Head: Atraumatic Neck: Supple Respiratory/Chest: No Respiratory Distress, Lungs Clear, Normal Breath Sounds Cardiovascular: Regular Rate, Rhythm GI/Abdominal Exam: Soft, Tender Extremities: Normal Inspection Neurological: Alert, No Motor/Sensory Deficits Skin Exam: Warm, Dry, Normal Color, No Rash Course - Re-Assessments/Exams Free Text/Narrative Re-Assessment/Exam: 05/08/19 19:03 Labs have come back normal, white blood count normal, LFT, lipase are all normal. However with a three-day history persistent pain described as an "8" and right upper abdominal tenderness will check abdominal ultrasound to try better sort this out. It is now at change of shift so will transfer care to Dr. Diaz. 05/08/19 19:08. Have ordered flat and upright abd to get a look at her stool gas pattern while awaiting Abd US. HCG was neg. Sepsis Event Note - Evaluation Sepsis Screening Result: No Definite Risk - Focused Exam Date Exam was Performed: 05/12/19 Time Exam was Performed: 10:21
[2019-05-08] MEDS ORDERED: HYDROmorphone 0.5 MG/0.5 ML Syringe ONE (19:09)
--- NOTE | 2019-05-08 20:05 | US ---
Limited abdominal ultrasound: Multiple real-time images of the upper right abdomen were obtained. Comparison: Previous right upper quadrant abdominal ultrasound of 12/23/18. Findings: Liver shows no focal abnormality. Visualized portions of the pancreas are within normal limits. Gallbladder shows no shadowing gallstones. No gallbladder wall thickening or biliary duct dilatation is seen. Right kidney shows no hydronephrosis or mass. Right kidney has a length of 10.8 cm. Inferior vena cava is patent. Portal vein shows normal hepatopedal flow. Impression: 1. No abnormality is appreciated on right upper quadrant abdominal ultrasound. 2. No significant change is seen from previous study. Diagnostic code #1 This report was dictated in [place] Standard Time
[2019-05-08] MEDS ORDERED: Magnesium Citrate Solution 296 ML Bottle PO ONE (20:40)
--- NOTE | 2019-05-09 07:52 | CR ---
Abdomen: Supine and upright views of the abdomen were obtained. Bowel gas pattern appears within normal limits. No soft tissue abnormality is seen. No free air is seen. Bony structures are unremarkable. Calcification is noted within the right pelvis most likely due to phlebolith. Impression: 1. Nothing acute is seen on two-view abdominal x-ray. Diagnostic code #1 This report was dictated in [place] Standard Time
== END 2019-05-08 20:50 | disposition home or self-care (01) ==
LOC: JD.ED 15:39
DX: K59.01 Slow transit constipation (principal); R11.0 Nausea; F17.210 Nicotine dependence, cigarettes, uncomplicated; Z88.1 Allergy status to other antibiotic agents; Z87.442 Personal history of urinary calculi
CPT/HCPCS: 36415; 74019; 76705; 80053; 81001; 82977; 83690; 84703; 85025; 96361; 96374; 96375; 96376; 99284; A9270; J1170; J2405; J7030; 99283

== ENCOUNTER 2022-07-27 08:20 | Emergency (ER) | payer BC ==
[2022-07-27] MEDS ORDERED: methylPREDNISolone Sodium Succinate 125 MG/2 ML SDV IVPUSH ONE (08:42)
[2022-07-27] MEDS ORDERED: diphenhydrAMINE 50 MG/ML SDV IVPUSH ONE (08:42)
[2022-07-27] MEDS ORDERED: Famotidine 20 MG/2 ML SDV IVPUSH SCH (09:00)
== END 2022-07-27 10:41 | disposition home or self-care (01) ==
LOC: JD.ED 08:20
DX: L50.9 Urticaria, unspecified (principal); Z88.0 Allergy status to penicillin; F17.210 Nicotine dependence, cigarettes, uncomplicated
CPT/HCPCS: 36415; 80053; 85025; 86140; 96374; 96375; 99283; J1200; J2930; J3490; 99284